=== PATIENT | female | born 1940 | race Caucasian/White ===

== ENCOUNTER 2017-10-29 08:08 | Day surgery (SDC) | payer MEDICARE ==
[2017-10-28 10:21] VITALS: BMI 30.1
[2017-10-29 09:50] VITALS: RESP 18; TEMP 97.7
[2017-10-29] MEDS ORDERED: LIDOCAINE 1% 20 ML VIAL (10MG/ML) FOR IV START INTRADERMA ONE (09:52)
[2017-10-29] MEDS: LACTATED RINGERS 1,000 ML IV SCH ×2 (09:52→10:19)
[2017-10-29 10:05] LABS: Glucose,Whole Blood 132 mg/dL (75-99)
[2017-10-29] MEDS ORDERED: PROPOFOL 10 MG/ML 20 ML VIAL IV ONE (10:21)
--- NOTE | 2017-10-29 10:48 | P.PCN ---
Date of Procedure: 10/29/17 Procedure(s) Performed: BRIEF HISTORY: Patient is a 77-year-old pleasant white female, scheduled for an elective colonoscopy as a part of evaluation of prior history of colon polyps. Last colonoscopy was 5 years ago. PROCEDURE PERFORMED: Colonoscopy with biopsy and snare polypectomy. PREOPERATIVE DIAGNOSIS: History of colon polyps. IV sedation per Anesthesia. PROCEDURE: After informed consent was obtained, the patient, was brought into the endoscopy unit. IV sedation was administered by Anesthesia under continuous monitoring. Digital rectal examination was normal. Initially the Olympus CF- 160 flexible video colonoscope was then inserted in the rectum, gradually advanced into the cecum without any difficulty. Careful examination was performed as the scope was gradually being withdrawn. Ileocecal valve and the appendiceal orifice were visualized and appeared normal. Prep was excellent. The base of the cecum there was a 3-4 mm sessile polyp removed by biopsy. In the ascending colon there was a 7 mm polyp removed by snare polypectomy. Mucosa of the cecum, ascending colon, transverse colon, descending colon, sigmoid colon, and rectum appeared normal. Retroflexion was performed in the rectum and no lesions were seen. The patient tolerated the procedure well. IMPRESSION: 3-4 mm sessile cecal polyp status post removal by biopsy 7 mm ascending colon polyp status post polypectomy RECOMMENDATIONS: Findings of this examination were discussed with the patient as well as her family. She was advised to follow with the biopsy results. If the biopsy shows a tubular adenoma, she can have a repeat colonoscopy in 5 years.
[2017-10-29 11:30] VITALS: BP 107/74; PULSE 94
== END 2017-10-29 11:41 | disposition home or self-care (01) ==
LOC: ORWHC2ENDO 08:08
PROVIDERS: ATTEND Internal Medicine Gastroenterology
DX: D12.2 Benign neoplasm of ascending colon (principal); I48.91 Unspecified atrial fibrillation; I10 Essential (primary) hypertension; J45.909 Unspecified asthma, uncomplicated; K63.5 Polyp of colon; E11.9 Type 2 diabetes mellitus without complications; Z79.899 Other long term (current) drug therapy; Z79.82 Long term (current) use of aspirin; Z79.01 Long term (current) use of anticoagulants; Z86.010 Personal history of colon polyps; Z88.5 Allergy status to narcotic agent; Z79.84 Long term (current) use of oral hypoglycemic drugs; Z88.8 Allergy status to other drugs, medicaments and biological substances
CPT/HCPCS: 88305; 45385; 45380; J2704; 36415; 71046; 80053; 82550; 82553; 83735; 83880; 84484; 85025; 85610; 85730; 94640; 96374; 99285

== ENCOUNTER 2017-10-29 16:02 | Emergency (ER) | payer MEDICARE ==
[2017-10-29] MEDS ORDERED: IPRATROPIUM-ALBUTEROL 3 ML NEB INHALATION STA (16:40)
--- NOTE | 2017-10-29 16:43 | ED ---
General Adult HPI - General Chief complaint: Chest Pain Stated complaint: Sob/heavy chest Time Seen by Provider: 10/29/17 16:30 Source: patient, RN notes reviewed, old records reviewed Mode of arrival: wheelchair Limitations: no limitations - History of Present Illness Initial comments: 77-year-old female presenting with chief complaint of dyspnea. Patient states that earlier today she had a colonoscopy, was discharged in her usual state of health, no issues, approximately one hour prior to presentation she developed exertional dyspnea. She has some central chest tightness associated with this. No radiating symptoms to her chest pain. No nausea or vomiting. Patient denies cough. Denies fever or chills. Denies lower extremity swelling or calf tenderness. Denies URI symptoms. She does have remote history of asthma but has not required treatment for her asthma in many years. No current or significant tobacco exposure. - Related Data Home Medications Medication Instructions Recorded Confirmed Aspirin EC [Ecotrin Low Dose] 81 mg PO DAILY 09/19/14 10/29/17 Rivaroxaban [Xarelto] 20 mg PO HS 09/19/14 10/29/17 Simvastatin [Zocor] 80 mg PO HS 09/19/14 10/29/17 metFORMIN HCL [Glucophage] 500 mg PO BID 09/19/14 10/29/17 Calcium Carbonate/Vitamin D3 2 tab PO BID 05/29/15 10/29/17 [Calcium 600-Vit D3 400 Tablet] Flecainide Acetate [Tambocor] 100 mg PO Q12HR 09/22/15 10/29/17 Latanoprost [Xalatan 0.005%] 1 drop RIGHT EYE HS 09/22/15 10/29/17 Levothyroxine Sodium [Levoxyl] 100 mcg PO DAILY 09/22/15 10/29/17 Venlafaxine HCl ER [Effexor Xr] 150 mg PO DAILY 09/22/15 10/29/17 Spironolactone-Hctz 25-25Mg 1 tab PO DAILY 09/24/15 10/29/17 [Aldactazide 25-25Mg] Metoprolol Tartrate [Lopressor] 12.5 mg PO BID 10/28/17 10/29/17 amLODIPine [Norvasc] 5 mg PO HS 10/28/17 10/29/17 Previous Rx's Medication Instructions Recorded Albuterol Inhaler [Ventolin Hfa 1 - 2 puff INHALATION Q4HR PRN #1 10/29/17 Inhaler] inhaler Allergies Allergy/AdvReac Type Severity Reaction Status Date / Time codeine Allergy Unknown Verified 10/29/17 16:45 Childhood NITRO PATCH AdvReac Severe Shakes/patient Uncoded 10/29/17 16:45 got very cold Review of Systems ROS Statement: Those systems with pertinent positive or pertinent negative responses have been documented in the HPI. ROS Other: All systems not noted in ROS Statement are negative. Past Medical History Past Medical History: Atrial Fibrillation, Asthma, Cancer, Diabetes Mellitus, Hyperlipidemia, Hypertension, Osteoarthritis (OA), Pneumonia, Sleep Apnea/CPAP/ BIPAP, Thyroid Disorder Additional Past Medical History / Comment(s): hx. breast cancer 6-7 yrs. ago, doesn't use CPAP, change in bowel habits recently, pneumonia >20 yrs. ago History of Any Multi-Drug Resistant Organisms: None Reported Past Surgical History: Adenoidectomy, Breast Surgery, Cholecystectomy, Hysterectomy, Tonsillectomy Additional Past Surgical History / Comment(s): sherman cataracts, loop recorder- since removed., sherman mastectomies Past Anesthesia/Blood Transfusion Reactions: No Reported Reaction Past Psychological History: No Psychological Hx Reported Smoking Status: Former smoker Past Alcohol Use History: None Reported Past Drug Use History: None Reported - Past Family History Father Family Medical History: Cancer, Thyroid Disorder Additional Family Medical History / Comment(s): spleen cancer Mother Family Medical History: Cancer Additional Family Medical History / Comment(s): breast cancer twice surviver General Exam Limitations: no limitations General appearance: alert, in no apparent distress Head exam: Present: atraumatic, normocephalic Eye exam: Present: normal appearance, PERRL ENT exam: Present: normal exam Neck exam: Present: normal inspection. Absent: tenderness, meningismus Respiratory exam: Present: wheezes, other (Good air entry, bilateral expiratory wheezing). Absent: respiratory distress Cardiovascular Exam: Present: tachycardia, irregular rhythm GI/Abdominal exam: Present: soft. Absent: distended, tenderness, guarding, rebound Extremities exam: Present: normal inspection, normal capillary refill. Absent: pedal edema, calf tenderness Back exam: Present: normal inspection, full ROM. Absent: tenderness Neurological exam: Present: alert, oriented X3, CN II-XII intact. Absent: motor sensory deficit Psychiatric exam: Present: normal affect, normal mood Skin exam: Present: warm, dry, intact. Absent: cyanosis, diaphoretic Course Vital Signs 10/29/17 10/29/17 10/29/17 16:16 17:09 17:20 Temperature 98.1 F Pulse Rate 115 H 112 H 124 H Respiratory 18 Rate Blood Pressure 107/62 O2 Sat by Pulse 97 Oximetry EKG Findings - EKG Comments: EKG Findings:: EKG atrial fibrillation with RVR, left axis deviation, T-wave abnormality in the leads V2 and V3, ventricular rate of 102, QRS duration 102, QTC 479, T-wave and ST segment abnormality is unchanged or improved from previous EKG in December 2015. Medical Decision Making - Medical Decision Making 77 yo female presenting with dyspnea. Patient is wheezing on exam, she does have history of asthma although she has not had an asthma exacerbation in many years. EKG shows atrial fibrillation with a rate of 102, there is ST segment and T-wave abnormality however this is improved from previous EKG. Patient has no central or radiating chest pain. Describes only mild chest tightness which is upper chest. Blood cell count, stable hemoglobin, troponin is negative, BNP is normal. Patient is anticoagulated for her atrial fibrillation. Chest x-ray negative for focal pneumonia. After DuoNeb treatment, patient feels 100% better , no dyspnea. Wheezing is improved. She is 97% on room air. Patient's heart rate is running right around 98-110, she will take her evening dose of metoprolol when she gets home. She will return with any worsening or changing symptoms. Patient and family are agreeable with plan. - Lab Data Result diagrams: 10/29/17 16:32 10/29/17 16:32 Lab Results 10/29/17 10/29/17 10/29/17 Range/Units 16:32 16:32 16:32 WBC 8.5 (3.8-10.6) k/uL RBC 4.82 (3.80-5.40) m/uL Hgb 13.9 (11.4-16.0) gm/dL Hct 41.2 (34.0-46.0) % MCV 85.5 (80.0-100.0) fL MCH 28.8 (25.0-35.0) pg MCHC 33.7 (31.0-37.0) g/dL RDW 14.0 (11.5-15.5) % Plt Count 351 (150-450) k/uL Neutrophils % 80 % Lymphocytes % 11 % Monocytes % 5 % Eosinophils % 2 % Basophils % 1 % Neutrophils # 6.8 (1.3-7.7) k/uL Lymphocytes # 1.0 (1.0-4.8) k/uL Monocytes # 0.5 (0-1.0) k/uL Eosinophils # 0.2 (0-0.7) k/uL Basophils # 0.1 (0-0.2) k/uL PT 10.0 (9.0-12.0) sec INR 1.0 (<1.2) APTT 21.1 L (22.0-30.0) sec Sodium 141 (137-145) mmol/L Potassium 3.4 L (3.5-5.1) mmol/L Chloride 100 (98-107) mmol/L Carbon Dioxide 25 (22-30) mmol/L Anion Gap 16 mmol/L BUN 25 H (7-17) mg/dL Creatinine 0.98 (0.52-1.04) mg/dL Est GFR (CKD-EPI)AfAm 65 (>60 ml/min/1.73 sqM) Est GFR (CKD-EPI)NonAf 56 (>60 ml/min/1.73 sqM) Glucose 195 H (74-99) mg/dL Calcium 9.8 (8.4-10.2) mg/dL Magnesium 1.8 (1.6-2.3) mg/dL Total Bilirubin 0.6 (0.2-1.3) mg/dL AST 18 (14-36) U/L ALT 20 (9-52) U/L Alkaline Phosphatase 82 (38-126) U/L Total Creatine Kinase (30-135) U/L CK-MB (CK-2) (0.0-2.4) ng/mL CK-MB (CK-2) Rel Index Troponin I (0.000-0.034) ng/mL NT-Pro-B Natriuret Pep pg/mL Total Protein 6.0 L (6.3-8.2) g/dL Albumin 3.6 (3.5-5.0) g/dL 10/29/17 10/29/17 Range/Units 16:32 16:37 WBC (3.8-10.6) k/uL RBC (3.80-5.40) m/uL Hgb (11.4-16.0) gm/dL Hct (34.0-46.0) % MCV (80.0-100.0) fL MCH (25.0-35.0) pg MCHC (31.0-37.0) g/dL RDW (11.5-15.5) % Plt Count (150-450) k/uL Neutrophils % % Lymphocytes % % Monocytes % % Eosinophils % % Basophils % % Neutrophils # (1.3-7.7) k/uL Lymphocytes # (1.0-4.8) k/uL Monocytes # (0-1.0) k/uL Eosinophils # (0-0.7) k/uL Basophils # (0-0.2) k/uL PT (9.0-12.0) sec INR (<1.2) APTT (22.0-30.0) sec Sodium (137-145) mmol/L Potassium (3.5-5.1) mmol/L Chloride (98-107) mmol/L Carbon Dioxide (22-30) mmol/L Anion Gap mmol/L BUN (7-17) mg/dL Creatinine (0.52-1.04) mg/dL Est GFR (CKD-EPI)AfAm (>60 ml/min/1.73 sqM) Est GFR (CKD-EPI)NonAf (>60 ml/min/1.73 sqM) Glucose (74-99) mg/dL Calcium (8.4-10.2) mg/dL Magnesium (1.6-2.3) mg/dL Total Bilirubin (0.2-1.3) mg/dL AST (14-36) U/L ALT (9-52) U/L Alkaline Phosphatase (38-126) U/L Total Creatine Kinase 60 (30-135) U/L CK-MB (CK-2) 0.6 (0.0-2.4) ng/mL CK-MB (CK-2) Rel Index 1.0 Troponin I <0.012 (0.000-0.034) ng/mL NT-Pro-B Natriuret Pep 731 pg/mL Total Protein (6.3-8.2) g/dL Albumin (3.5-5.0) g/dL Disposition Clinical Impression: Asthma Disposition: HOME SELF-CARE Condition: Fair Instructions: Asthma (ED) Prescriptions: Albuterol Inhaler [Ventolin Hfa Inhaler] 1 - 2 puff INHALATION Q4HR PRN #1 inhaler PRN Reason: Shortness Of Breath Referrals: Ilda Rivera DO [Primary Care Provider] - 1-2 days Time of Disposition: 17:42
[2017-10-29 16:53] LABS: Basophils # (A) 0.1 k/uL (0-0.2); Basophils % (A) 1 %; Eosinophils # (A) 0.2 k/uL (0-0.7); Eosinophils % (A) 2 %; HCT 41.2 % (34.0-46.0); HGB 13.9 gm/dL (11.4-16.0); Lymphocytes % (A) 11 %; MCH 28.8 pg (25.0-35.0); MCHC 33.7 g/dL (31.0-37.0); MCV 85.5 fL (80.0-100.0); Mean Platelet Volume 7.1; Monocytes # (A) 0.5 k/uL (0-1.0); Monocytes % (A) 5 %; Neutrophils # (A) 6.8 k/uL (1.3-7.7); Neutrophils % (A) 80 %; Platelet Count 351 k/uL (150-450); RBC 4.82 m/uL (3.80-5.40); WBC 8.5 k/uL (3.8-10.6)
[2017-10-29 17:05] LABS: Albumin 3.6 g/dL (3.5-5.0); Calcium 9.8 mg/dL (8.4-10.2); Magnesium 1.8 mg/dL (1.6-2.3); Potassium 3.4 mmol/L (3.5-5.1); Total Bilirubin 0.6 mg/dL (0.2-1.3)
[2017-10-29 17:11] LABS: Partial Thromboplastin Time 21.1 sec (22.0-30.0)
[2017-10-29 17:13] LABS: Creatine Kinase 60 U/L (30-135)
[2017-10-29 17:24] LABS: Creatine Kinase MB 0.6 ng/mL (0.0-2.4); Troponin I <0.012 ng/mL (0.000-0.034)
--- NOTE | 2017-10-29 17:32 | XR ---
EXAMINATION TYPE: XR chest 2V DATE OF EXAM: 10/29/2017 COMPARISON: 12/03/2015 HISTORY: Short of breath TECHNIQUE: Frontal and lateral views of the chest are obtained. FINDINGS: There is no heart failure nor confluent pneumonic infiltrate. Costophrenic angles are valeria r. There are chest leads. Thoracic aorta shows mild atheromatous change. IMPRESSION: No active cardiopulmonary disease. No change.
[2017-10-29] MEDS ORDERED: SODIUM CHLORIDE 0.9% 500 ML IV ONE (17:35)
[2017-10-29] MEDS ORDERED: DEXAMETHASONE SOD PHOSPHATE 10 MG/ML 1 ML VIAL IV STA (17:39)
[2017-10-29 17:42] VITALS: BP 133/89; PULSE 110; RESP 20; TEMP 97.8
== END 2017-10-29 18:04 | disposition home or self-care (01) ==
LOC: EC 16:02
DX: J45.909 Unspecified asthma, uncomplicated (principal); I48.91 Unspecified atrial fibrillation; E11.9 Type 2 diabetes mellitus without complications; E78.5 Hyperlipidemia, unspecified; I10 Essential (primary) hypertension; E07.9 Disorder of thyroid, unspecified; G47.30 Sleep apnea, unspecified; Z85.3 Personal history of malignant neoplasm of breast; Z87.891 Personal history of nicotine dependence; Z79.01 Long term (current) use of anticoagulants; Z79.82 Long term (current) use of aspirin; Z79.84 Long term (current) use of oral hypoglycemic drugs; Z79.899 Other long term (current) drug therapy; Z88.5 Allergy status to narcotic agent; Z88.8 Allergy status to other drugs, medicaments and biological substances
CPT/HCPCS: 36415; 94640; 83880; 80053; 82550; 82553; 83735; 84484; 85025; 85610; 85730; 71046; 99285; 96374; J1100

== ENCOUNTER 2017-11-14 01:06 | Emergency (ER) | payer MEDICARE ==
[2017-11-14] MEDS ORDERED: DILTIAZEM 5 MG/1 ML (25ML VIAL) IV STA (01:47)
--- NOTE | 2017-11-14 01:50 | ED ---
General Adult HPI - General Chief complaint: Shortness of Breath Stated complaint: AFIB SOB Time Seen by Provider: 11/14/17 01:26 Source: patient, family, RN notes reviewed Mode of arrival: ambulatory Limitations: no limitations - History of Present Illness Initial comments: Patient is a pleasant 77-year-old female presenting to the emergency department with concerns for atrial fibrillation. Onset of symptoms was earlier today. Patient feels her heart skipping. Patient felt short of breath. Symptoms are similar to previous atrial fibrillation. was recently in atrial fibrillation for around 10 days and got out of bed around a week ago. Patient does see Dr. Allen with cardiology. Patient has planned echo followed by ablation. Patient states dyspnea has resolved with oxygen. Patient denies ever having any chest discomfort. Patient is on Xarelto. - Related Data Home Medications Medication Instructions Recorded Confirmed Aspirin EC [Ecotrin Low Dose] 81 mg PO DAILY 09/19/14 11/14/17 Rivaroxaban [Xarelto] 20 mg PO HS 09/19/14 11/14/17 Simvastatin [Zocor] 80 mg PO HS 09/19/14 11/14/17 metFORMIN HCL [Glucophage] 500 mg PO BID 09/19/14 11/14/17 Calcium Carbonate/Vitamin D3 2 tab PO BID 05/29/15 11/14/17 [Calcium 600-Vit D3 400 Tablet] Flecainide Acetate [Tambocor] 100 mg PO Q12HR 09/22/15 11/14/17 Latanoprost [Xalatan 0.005%] 1 drop RIGHT EYE HS 09/22/15 11/14/17 Levothyroxine Sodium [Levoxyl] 100 mcg PO DAILY 09/22/15 11/14/17 Venlafaxine HCl ER [Effexor Xr] 150 mg PO DAILY 09/22/15 11/14/17 Spironolactone-Hctz 25-25Mg 1 tab PO DAILY 09/24/15 11/14/17 [Aldactazide 25-25Mg] Metoprolol Tartrate [Lopressor] 12.5 mg PO BID 10/28/17 11/14/17 amLODIPine [Norvasc] 5 mg PO HS 10/28/17 11/14/17 Previous Rx's Medication Instructions Recorded Albuterol Inhaler [Ventolin Hfa 1 - 2 puff INHALATION Q4HR PRN #1 10/29/17 Inhaler] inhaler Allergies Allergy/AdvReac Type Severity Reaction Status Date / Time codeine Allergy Unknown Verified 11/14/17 01:15 Childhood NITRO PATCH AdvReac Severe Shakes/patient Uncoded 11/14/17 01:15 got very cold Review of Systems ROS Statement: Those systems with pertinent positive or pertinent negative responses have been documented in the HPI. ROS Other: All systems not noted in ROS Statement are negative. Constitutional: Denies: fever Eyes: Denies: eye pain ENT: Denies: ear pain Respiratory: Reports: dyspnea. Denies: cough Cardiovascular: Reports: palpitations. Denies: chest pain Endocrine: Denies: fatigue Gastrointestinal: Denies: abdominal pain Genitourinary: Denies: dysuria Musculoskeletal: Denies: back pain Skin: Denies: rash Neurological: Denies: weakness Past Medical History Past Medical History: Atrial Fibrillation, Asthma, Cancer, Diabetes Mellitus, Hyperlipidemia, Hypertension, Osteoarthritis (OA), Pneumonia, Sleep Apnea/CPAP/ BIPAP, Thyroid Disorder Additional Past Medical History / Comment(s): hx. breast cancer 6-7 yrs. ago, doesn't use CPAP, change in bowel habits recently, pneumonia >20 yrs. ago History of Any Multi-Drug Resistant Organisms: None Reported Past Surgical History: Adenoidectomy, Breast Surgery, Cholecystectomy, Hysterectomy, Tonsillectomy Additional Past Surgical History / Comment(s): sherman cataracts, loop recorder- since removed., sherman mastectomies Past Anesthesia/Blood Transfusion Reactions: No Reported Reaction Past Psychological History: No Psychological Hx Reported Smoking Status: Former smoker Past Alcohol Use History: None Reported Past Drug Use History: None Reported - Past Family History Father Family Medical History: Cancer, Thyroid Disorder Additional Family Medical History / Comment(s): spleen cancer Mother Family Medical History: Cancer Additional Family Medical History / Comment(s): breast cancer twice surviver General Exam Limitations: no limitations General appearance: alert, in no apparent distress Head exam: Present: atraumatic Eye exam: Present: normal appearance, PERRL ENT exam: Present: normal oropharynx Neck exam: Present: normal inspection Respiratory exam: Present: normal lung sounds bilaterally Cardiovascular Exam: Present: irregular rhythm Expanded Peripheral pulses: 2+: Radial (R), Radial (L), Dorsalis Pedis (R), Dorsalis Pedis (L) GI/Abdominal exam: Present: soft. Absent: tenderness Extremities exam: Present: normal inspection. Absent: pedal edema, calf tenderness Neurological exam: Present: alert Psychiatric exam: Present: normal affect, normal mood Skin exam: Present: normal color Course Vital Signs 11/14/17 11/14/17 11/14/17 01:10 01:14 02:14 Temperature 97 F L Pulse Rate 100 90 99 Respiratory 20 19 16 Rate Blood Pressure 104/64 135/71 126/83 O2 Sat by Pulse 98 100 96 Oximetry 11/14/17 02:52 Temperature Pulse Rate 91 Respiratory 16 Rate Blood Pressure 98/63 O2 Sat by Pulse 93 L Oximetry EKG Findings - EKG Comments: EKG Findings:: Irregular narrow complex rhythm with a rate of 95. QRS 92. QT 370. QTc 464. Left axis. Inferior Q waves. No acute ST change. Medical Decision Making - Medical Decision Making Patient reevaluated and symptom-free. Patient requests discharge home. Patient updated on results and need for follow-up as well as need for repeat thyroid studies. - Lab Data Result diagrams: 11/14/17 01:25 11/14/17 01:25 Lab Results 11/14/17 11/14/17 11/14/17 Range/Units 01:25 01:25 01:25 WBC (3.8-10.6) k/uL RBC (3.80-5.40) m/uL Hgb (11.4-16.0) gm/dL Hct (34.0-46.0) % MCV (80.0-100.0) fL MCH (25.0-35.0) pg MCHC (31.0-37.0) g/dL RDW (11.5-15.5) % Plt Count (150-450) k/uL Neutrophils % % Lymphocytes % % Monocytes % % Eosinophils % % Basophils % % Neutrophils # (1.3-7.7) k/uL Lymphocytes # (1.0-4.8) k/uL Monocytes # (0-1.0) k/uL Eosinophils # (0-0.7) k/uL Basophils # (0-0.2) k/uL PT (9.0-12.0) sec INR (<1.2) APTT (22.0-30.0) sec Sodium 143 (137-145) mmol/L Potassium 3.7 (3.5-5.1) mmol/L Chloride 105 (98-107) mmol/L Carbon Dioxide 23 (22-30) mmol/L Anion Gap 15 mmol/L BUN 28 H (7-17) mg/dL Creatinine 0.80 (0.52-1.04) mg/dL Est GFR (CKD-EPI)AfAm 83 (>60 ml/min/1.73 sqM) Est GFR (CKD-EPI)NonAf 72 (>60 ml/min/1.73 sqM) Glucose 131 H (74-99) mg/dL Calcium 9.5 (8.4-10.2) mg/dL Magnesium 1.9 (1.6-2.3) mg/dL Total Bilirubin 0.4 (0.2-1.3) mg/dL AST 15 (14-36) U/L ALT 18 (9-52) U/L Alkaline Phosphatase 79 (38-126) U/L Total Creatine Kinase 39 (30-135) U/L CK-MB (CK-2) 0.7 (0.0-2.4) ng/mL CK-MB (CK-2) Rel Index 1.8 Troponin I <0.012 (0.000-0.034) ng/mL NT-Pro-B Natriuret Pep 2070 pg/mL Total Protein 5.7 L (6.3-8.2) g/dL Albumin 3.5 (3.5-5.0) g/dL TSH 7.120 H (0.465-4.680) mIU/L Free T3 pg/mL 2.6 L (2.8-5.3) pg/ml 11/14/17 11/14/17 Range/Units 01:25 01:25 WBC 8.5 (3.8-10.6) k/uL RBC 4.63 (3.80-5.40) m/uL Hgb 13.4 (11.4-16.0) gm/dL Hct 39.6 (34.0-46.0) % MCV 85.6 (80.0-100.0) fL MCH 29.0 (25.0-35.0) pg MCHC 33.9 (31.0-37.0) g/dL RDW 14.3 (11.5-15.5) % Plt Count 350 (150-450) k/uL Neutrophils % 76 % Lymphocytes % 14 % Monocytes % 5 % Eosinophils % 2 % Basophils % 0 % Neutrophils # 6.5 (1.3-7.7) k/uL Lymphocytes # 1.2 (1.0-4.8) k/uL Monocytes # 0.4 (0-1.0) k/uL Eosinophils # 0.2 (0-0.7) k/uL Basophils # 0.0 (0-0.2) k/uL PT 11.7 (9.0-12.0) sec INR 1.2 H (<1.2) APTT 26.7 (22.0-30.0) sec Sodium (137-145) mmol/L Potassium (3.5-5.1) mmol/L Chloride (98-107) mmol/L Carbon Dioxide (22-30) mmol/L Anion Gap mmol/L BUN (7-17) mg/dL Creatinine (0.52-1.04) mg/dL Est GFR (CKD-EPI)AfAm (>60 ml/min/1.73 sqM) Est GFR (CKD-EPI)NonAf (>60 ml/min/1.73 sqM) Glucose (74-99) mg/dL Calcium (8.4-10.2) mg/dL Magnesium (1.6-2.3) mg/dL Total Bilirubin (0.2-1.3) mg/dL AST (14-36) U/L ALT (9-52) U/L Alkaline Phosphatase (38-126) U/L Total Creatine Kinase (30-135) U/L CK-MB (CK-2) (0.0-2.4) ng/mL CK-MB (CK-2) Rel Index Troponin I (0.000-0.034) ng/mL NT-Pro-B Natriuret Pep pg/mL Total Protein (6.3-8.2) g/dL Albumin (3.5-5.0) g/dL TSH (0.465-4.680) mIU/L Free T3 pg/mL (2.8-5.3) pg/ml - Radiology Data Radiology results: image reviewed (Chest x-ray shows no acute process) Disposition Clinical Impression: Atrial fibrillation Disposition: HOME SELF-CARE Condition: Stable Instructions: A-fib (Atrial Fibrillation) (ED) Additional Instructions: Please follow-up with your primary care physician in the next day or 2 for recheck. Have primary care physician review thyroid studies. Please also follow-up with Dr. Allen in the next couple of days. Return for increased heart rate, difficult to breathing, chest pain, worsening or changing symptoms or other concerns. Referrals: Ilda Rivera DO [Primary Care Provider] - 1-2 days Time of Disposition: 03:16
[2017-11-14 01:53] LABS: Basophils % (A) 0 %; Eosinophils # (A) 0.2 k/uL (0-0.7); Eosinophils % (A) 2 %; HCT 39.6 % (34.0-46.0); HGB 13.4 gm/dL (11.4-16.0); Lymphocytes # (A) 1.2 k/uL (1.0-4.8); Lymphocytes % (A) 14 %; MCHC 33.9 g/dL (31.0-37.0); MCV 85.6 fL (80.0-100.0); Mean Platelet Volume 7.1; Monocytes # (A) 0.4 k/uL (0-1.0); Monocytes % (A) 5 %; Neutrophils # (A) 6.5 k/uL (1.3-7.7); Neutrophils % (A) 76 %; Platelet Count 350 k/uL (150-450); RBC 4.63 m/uL (3.80-5.40); RDW 14.3 % (11.5-15.5); WBC 8.5 k/uL (3.8-10.6)
[2017-11-14 02:03] LABS: INR 1.2 (<1.2); Partial Thromboplastin Time 26.7 sec (22.0-30.0); Prothrombin Time 11.7 sec (9.0-12.0)
[2017-11-14 02:08] LABS: Albumin 3.5 g/dL (3.5-5.0); Calcium 9.5 mg/dL (8.4-10.2); Magnesium 1.9 mg/dL (1.6-2.3); Potassium 3.7 mmol/L (3.5-5.1); Total Bilirubin 0.4 mg/dL (0.2-1.3); Total Protein 5.7 g/dL (6.3-8.2)
--- NOTE | 2017-11-14 02:17 | XR ---
EXAMINATION TYPE: XR chest 2V DATE OF EXAM: 11/14/2017 COMPARISON: 10/21/2017 HISTORY: Short of breath TECHNIQUE: Frontal and lateral views of the chest are obtained. FINDINGS: There is no heart failure nor confluent pneumonic infiltrate. Costophrenic angles are valeria r. Thoracic aorta is atheromatous. There are chest leads. There is mild spurring in the thoracic spin e. IMPRESSION: No active cardiopulmonary disease. No change.
[2017-11-14 02:20] LABS: Creatine Kinase 39 U/L (30-135)
[2017-11-14 02:34] LABS: Creatine Kinase MB 0.7 ng/mL (0.0-2.4); Troponin I <0.012 ng/mL (0.000-0.034)
[2017-11-14 03:29] VITALS: BP 107/64; PULSE 92; RESP 19; TEMP 97.5
== END 2017-11-14 03:29 | disposition home or self-care (01) ==
LOC: EC 01:06
DX: I48.91 Unspecified atrial fibrillation (principal); J45.909 Unspecified asthma, uncomplicated; E11.9 Type 2 diabetes mellitus without complications; E78.5 Hyperlipidemia, unspecified; I10 Essential (primary) hypertension; E07.9 Disorder of thyroid, unspecified; G47.30 Sleep apnea, unspecified; Z99.89 Dependence on other enabling machines and devices; Z85.3 Personal history of malignant neoplasm of breast; Z87.891 Personal history of nicotine dependence; Z79.82 Long term (current) use of aspirin; Z79.01 Long term (current) use of anticoagulants; Z79.84 Long term (current) use of oral hypoglycemic drugs; Z79.899 Other long term (current) drug therapy; Z88.5 Allergy status to narcotic agent; Z88.8 Allergy status to other drugs, medicaments and biological substances
CPT/HCPCS: 36415; 71046; 80053; 82550; 82553; 83735; 83880; 84439; 84443; 84481; 84484; 85025; 85610; 85730; 96374; 99285

== ENCOUNTER 2017-12-16 11:30 | Day surgery (SDC) | payer MEDICARE ==
[2017-12-11 11:56] VITALS: BMI 30.6
[~2017-12-16 11:30] MED LIST: LACTATED RINGERS 1,000 ML IV SCH; LIDOCAINE 1% 20 ML VIAL (10MG/ML) FOR IV START INTRADERMA PRN
[2017-12-16] MEDS: SODIUM CHLORIDE 0.9% 1,000 ML IV SCH (12:02)
[2017-12-16 12:10] LABS: Glucose,Whole Blood 125 mg/dL (75-99)
[2017-12-16 12:17] LABS: Basophils % (A) 1 %; Eosinophils # (A) 0.3 k/uL (0-0.7); Eosinophils % (A) 4 %; HGB 14.5 gm/dL (11.4-16.0); Lymphocytes # (A) 1.1 k/uL (1.0-4.8); Lymphocytes % (A) 15 %; MCH 28.2 pg (25.0-35.0); MCV 85.5 fL (80.0-100.0); Mean Platelet Volume 6.7; Monocytes # (A) 0.4 k/uL (0-1.0); Monocytes % (A) 5 %; Neutrophils # (A) 5.8 k/uL (1.3-7.7); Neutrophils % (A) 75 %; Platelet Count 367 k/uL (150-450); RBC 5.15 m/uL (3.80-5.40); RDW 14.6 % (11.5-15.5); WBC 7.7 k/uL (3.8-10.6)
[2017-12-16 12:23] LABS: Calcium 9.6 mg/dL (8.4-10.2); Potassium 4.3 mmol/L (3.5-5.1)
[2017-12-16] MEDS ORDERED: HEPARIN SODIUM,PORCINE 10,000 UNIT/ML 1 ML VIAL ONE (12:49)
[2017-12-16] MEDS ORDERED: PROPOFOL 10 MG/ML 20 ML VIAL IV ONE (12:49)
[2017-12-16] MEDS ORDERED: SUCCINYLCHOLINE CHLORIDE VIAL 200 MG/10 ML VIAL IV ONE (12:49)
[2017-12-16] MEDS ORDERED: HEPARIN SODIUM,PORCINE 5,000 UNIT/ML 1 ML VIAL ONE (12:49)
[2017-12-16] MEDS ORDERED: fentaNYL (PF) 50 MCG/ML 2 ML AMP ONE (12:49)
[2017-12-16] MEDS ORDERED: MIDAZOLAM 2 MG/2 ML VIAL ONE (12:49)
[2017-12-16] MEDS ORDERED: PROTAMINE SULFATE 10 MG/ML 5 ML VIAL IV ONE (12:49)
[2017-12-16] MEDS ORDERED: DEXAMETHASONE SOD PHOS (MDV) 100 MG/10 ML VIAL ONE (12:49)
[2017-12-16] MEDS ORDERED: PHENYLEPHRINE-0.9% NACL SYG 1 MG/10 ML SYRINGE ONE (12:49)
[2017-12-16] MEDS ORDERED: LIDOCAINE 2% INJ 20 MG/ML (20 ML MDV) ONE (13:03)
[2017-12-16] MEDS ORDERED: HEPARIN SODIUM 1,000 UN/ML (10ML VL) ONE (13:03)
[2017-12-16] MEDS ORDERED: HEPARIN SODIUM,PORCINE/D5W PMX 25,000 UNIT in DEXTROSE/WATER 1 500ML.BAG IV ONE (16:03)
[2017-12-16] MEDS ORDERED: LIDOCAINE 2% INJ 20 MG/ML SQ ONE (16:04)
[2017-12-16] MEDS ORDERED: LIDOCAINE 1%-EPI 1:100,000 30 ML VIAL SQ ONE (16:04)
[2017-12-16] MEDS ORDERED: SODIUM CHLORIDE 0.9% 1,000 ML IV ONE (16:06)
[2017-12-16] MEDS ORDERED: IOPAMIDOL-370 125ML BTL INJ ONE (16:09)
[2017-12-16] MEDS ORDERED: HYDROcodone/APAP 5-325MG 1 EACH TAB PO PRN (16:15)
[2017-12-16] MEDS ORDERED: ACETAMINOPHEN TAB 325 MG TAB PO PRN (16:15)
--- NOTE | 2017-12-16 16:42 | P.PCN ---
Preoperative Diagnosis: Diagnosis Persistent atrial fibrillation Symptomatic Drug refractory Procedures performed (PVI - CRYO Ablation) Invasive hemodynamic monitoring while general anesthesia, right femoral arterial line for monitoring and sampling Diagnostic EP study CS pacing and recording Catheter the mapping of the tachycardia (NOT 3D mapping) Intracardiac echocardiography Pulmonary vein isolation with transseptal and comprehensive EPS, 38770 Linear ablation of the roof in the left atrium Electrical cardioversion for slow atrial tachycardia, residual, cycle length 460 ms Procedure details Patient was brought to the EP lab in a fasting state. Written informed consent was obtained prior to the procedure. Procedure performed under general anesthesia After initial muscle relaxant use, muscle relaxants were not given thereafter in order to assess phrenic nerve during procedure Patient prepped and draped as per protocol Full cryo-set up with standard preparation of the cryoablation tools done Femoral Venous access obtained on the right and left groins Sheaths placed Diagnostic catheters for the high right atrium, phrenic nerve stimulation and pacing, His bundle, RV and coronary sinus placed Intracardiac echo catheter placed Long sheath placed in the right atrium Left and right transseptal catheterization performed under intracardiac echo guidance Intravenous heparin with aCT above 300 Later, catheter positioning and balloon positioning under intracardiac echo Baseline measurements HV 75 ms QRS 101 ms, QT 470 ms Atrial pacing performed from the high right atrium and the coronary sinus Transseptal catheterization performed RA pressure LA pressure is Transseptal catheterization performed with standard sheath. The cryoablation sheath was then placed with an over the wire exchange without any acute complications. All 4 pulmonary veins were isolated in the following sequence: Left superior followed by left inferior followed by right superior followed by right inferior The cryo-ablation balloon was placed at the os of each vein 1.5 mL of IV dye was injected to confirm an occluded vein Goal during cryoablation was to achieve -30C in the first 30 seconds. If not the balloon was repositioned to obtain this result After completion of Cryoblation with durations from 180-240 seconds, entrance block was confirmed with the Attain circular catheter in a roving fashion around the antrum of the pulmonary veins Phrenic nerve pacing was performed from the SVC, right innominate vein area and diaphragm voltage was monitored as well as manually Parameter goals for each cryo freeze -30C by 30 seconds -40C by 60 seconds Mediated between minus 40-55 Thaw time greater than 10 seconds Balloon visualized by intracardiac echo to ensure that the proximal one third was within the left atrium/antrum Left superior pulmonary vein 2 cryo lesions, 190 seconds followed by 120 seconds Time to effect was 78 seconds Complete isolation Left inferior pulmonary vein Extreme left-sided esophagus requiring deflection 3 cryo ablations The first cryoablation for 81 seconds, prematurely terminated because of low esophageal temperatures The second cryoablation 402 seconds, premature termination on account of esophageal temperatures Complete isolation of the vein at this point Additional 120 second cryoablation of the very end of the procedure Right superior pulmonary vein, during phrenic nerve pacing single cryoablation, successful isolation within 30 seconds Right inferior pulmonary vein, during phrenic nerve pacing 2 cryoablation's, 3 seconds each, complete isolation of the veins At the end of the procedure the Achieve catheter was once again used to check for entrance block Phrenic nerve stimulation was performed to confirm diaphragmatic stimulation the end of the procedure Cine fluoroscopy was performed at the very end of the procedure to confirm movement of both diaphragms with inspiration and expiration At the end of the procedure the patient was extubated Heparin was reversed Venous sheaths were removed and hemostasis assured Result Successful pulmonary vein isolation using cryo-ablation Complete entrance block in all 4 veins confirmed Linear ablation, roofline, 3 cryo lesions delivered Additional cryo ablation at the right-sided felisa anteriorly outside the pulmonary veins No evidence for phrenic nerve injury Extreme left-sided esophagus, difficult deflection but successful Residual atrial tachycardia 460 ms in cycle length, successful electrical cardioversion
[2017-12-16] MEDS ORDERED: ONDANSETRON 4 MG/2 ML VIAL IVP ONE (17:00)
[2017-12-16] MEDS ORDERED: METOCLOPRAMIDE 5 MG/ML 2 ML VIAL IVP ONE (17:10)
[2017-12-16 17:13] LABS: Glucose,Whole Blood 132 mg/dL (75-99)
[2017-12-16] MEDS ORDERED: ACETAMINOPHEN IV (For NPO) 1,000 MG in EMPTY BAG 1 BAG IVPB ONE (18:00)
[2017-12-16 20:26] LABS: Glucose,Whole Blood 147 mg/dL (75-99)
[2017-12-16] MEDS: METOPROLOL TARTRATE 12.5 MG TAB PO SCH (20:52)
[2017-12-16] MEDS: FLECAINIDE 50 MG TAB PO SCH (20:52)
[2017-12-16] MEDS ORDERED: LATANOPROST 0.005% OPHTH DROPS 2.5 ML BTL RIGHT EYE SCH (21:00)
[2017-12-16] MEDS ORDERED: RIVAROXABAN 20 MG TAB PO SCH (21:00)
[2017-12-16] MEDS ORDERED: ATORVASTATIN 40 MG TAB PO SCH (21:00)
[2017-12-17 06:07] LABS: Calcium 8.4 mg/dL (8.4-10.2); Potassium 4.4 mmol/L (3.5-5.1)
[2017-12-17] MEDS ORDERED: LEVOTHYROXINE 100 MCG TAB PO SCH (06:30)
[2017-12-17 07:03] LABS: Glucose,Whole Blood 151 mg/dL (75-99)
[2017-12-17] MEDS ORDERED: RX INFO: IV CONTRAST WAS GIVEN 1 EACH MISC MISCELLANE PRN (07:50)
--- NOTE | 2017-12-17 08:08 | P.DS ---
Providers Attending physician: Bryant Allen Primary care physician: Ilda Chilelarlo [facility] Course: Patient is lying comfortably in bed. She has no pleuritic chest discomfort but she is short of breath when she walks to the bathroom. She is limited for sore throat. Groins have healed well is no hematoma minimal tenderness. No dizziness or lightheadedness. No arrhythmias on telemetry Twelve-lead ECG was reviewed and shows sinus rhythm with a prolonged TN interval Abdomen soft Heart sounds are normal normal S1 normal S2 regular Breath sounds are clear no rhonchi no crackles No JVD Extremities warm no edema Groins have healed well Impression Successful cryoablation of the pulmonary veins with complete isolation Left atrial roof line Cryoablation outside the right anterior felisa Extreme left-sided esophagus requiring deflection Residual slow atrial tachycardia, extrapulmonary focus, cycle length 460 ms Electrical cardioversion performed Plan Lifelong anticoagulation Reduce the dose of flecainide to 50 mg twice daily Continue other medications Temporarily hold metformin and Aldactazide for 2 days. These medications can be restarted on Friday CT of the chest with contrast today to evaluate the esophagus and mediastinum were any injury. If okay then she will go home today by 6 PM In the office in about 2 weeks Patient Condition at Discharge: Stable Plan - Discharge Summary Discharge Rx Participant: No New Discharge Prescriptions: New Flecainide [Tambocor] 50 mg PO Q12HR #10 tablet Discontinued Flecainide Acetate [Tambocor] 100 mg PO TID No Action Aspirin EC [Ecotrin Low Dose] 81 mg PO DAILY Rivaroxaban [Xarelto] 20 mg PO HS metFORMIN HCL [Glucophage] 500 mg PO BID Simvastatin [Zocor] 80 mg PO HS Calcium Carbonate/Vitamin D3 [Calcium 600-Vit D3 400 Tablet] 2 tab PO BID Levothyroxine Sodium [Levoxyl] 100 mcg PO DAILY Venlafaxine HCl ER [Effexor Xr] 150 mg PO DAILY Latanoprost [Xalatan 0.005%] 1 drop RIGHT EYE HS Spironolactone-Hctz 25-25Mg [Aldactazide 25-25Mg] 1 tab PO DAILY Metoprolol Tartrate [Lopressor] 12.5 mg PO BID Discharge Medication List Aspirin EC [Ecotrin Low Dose] 81 mg PO DAILY 09/19/14 [History] Rivaroxaban [Xarelto] 20 mg PO HS 09/19/14 [History] Simvastatin [Zocor] 80 mg PO HS 09/19/14 [History] metFORMIN HCL [Glucophage] 500 mg PO BID 09/19/14 [History] Calcium Carbonate/Vitamin D3 [Calcium 600-Vit D3 400 Tablet] 2 tab PO BID [History] Latanoprost [Xalatan 0.005%] 1 drop RIGHT EYE HS 09/22/15 [History] Levothyroxine Sodium [Levoxyl] 100 mcg PO DAILY 09/22/15 [History] Venlafaxine HCl ER [Effexor Xr] 150 mg PO DAILY 09/22/15 [History] Spironolactone-Hctz 25-25Mg [Aldactazide 25-25Mg] 1 tab PO DAILY 09/24/15 [ History] Metoprolol Tartrate [Lopressor] 12.5 mg PO BID 10/28/17 [History] Flecainide [Tambocor] 50 mg PO Q12HR #10 tablet 12/17/17 [Rx] Follow up Appointment(s)/Referral(s): Bryant Allen MD [STAFF PHYSICIAN] - 2 Weeks (Follow-up with Dr. Vieira/DTpractitioner in about 2 weeks Follow-up with Dr. Vieira again in about 2 months) Activity/Diet/Wound Care/Special Instructions: Post EP study - Ablation instructions 1. Keep access sites dry for 2 days. 2. No heavy lifting or straining for 2 days. 3. Avoid bending the hips repeatedly for 2 days. 4. You may go up and down stairs slowly Call if the following is noted 1. Bleeding, increasing swelling or pain at the access sites. 2. Increasing chest discomfort, especially upon taking a deep breath. 3. Increasing shortness of breath, at rest or with exertion. 4. Undue cough / phlegm 5. Difficulty or pain while swallowing. 6. Pain or change in color in the extremities. 7. Fever, chills, rigors. 8. Increasing headache or neurologic symptoms. 9. Dizziness, fainting, palpitations Hold metformin and restart on Friday Reduce flecainide 250 mrem twice daily Continue anticoagulation lifelong Restart diuretic on Friday May go home by 6 PM if groins healing well, hemodynamic in stable and computed tomography scan does not show any evidence of air in the mediastinum Discharge Disposition: HOME SELF-CARE
[2017-12-17 08:54] VITALS: RESP 18
[2017-12-17] MEDS: METOPROLOL TARTRATE 12.5 MG TAB PO SCH (08:54)
[2017-12-17] MEDS: FLECAINIDE 50 MG TAB PO SCH (08:54)
[2017-12-17] MEDS: SODIUM CHLORIDE 0.9% 1,000 ML IV SCH (08:55)
[2017-12-17] MEDS ORDERED: VENLAFAXINE HCL ER 150 MG CAP PO SCH (09:00)
[2017-12-17] MEDS ORDERED: ASPIRIN 81 MG PO SCH (09:00)
--- NOTE | 2017-12-17 11:01 | CT ---
EXAMINATION TYPE: CT chest w con DATE OF EXAM: 12/17/2017 COMPARISON: CTA chest September 22, 2015 HISTORY: Shortness of breath. History of breast cancer per patient. Post ablation for atrial fibrilla tion rule out esophageal injury. CT DLP: 354.3 mGycm Automated exposure control for dose reduction was used. CONTRAST: CT scan of the chest is performed with IV Contrast, patient injected with 100 mL of Isovue 300. FINDINGS: LUNGS: Some dependent atelectatic changes seen in both bases. There is additional linear scarring red emonstrated in the left lung base. No suspicious focal consolidation or significant pleural effusion is seen. No pneumothorax is noted bilaterally. There is 3 mm nodule anterior right midlung axial imag e 23 redemonstrated felt stable from prior axial image 58. No new suspicious nodules or masses are id entified. There is medial left apical linear scarring or atelectasis axial image 9. There is some tara tral peribronchial consolidation and/or atelectasis bilaterally redemonstrated unchanged from prior. MEDIASTINUM: There are no greater than 1 cm hilar or mediastinal lymph nodes. No pericardial effusi on is seen. Cardiomegaly with moderate biatrial dilatation is redemonstrated. No pneumomediastinum i s seen. No suspicious focal fluid is identified. There is ectatic course to descending thoracic aorta redemonstrated. Ascending aorta measures up to 3.9 cm diameter on axial image 26 unchanged from prio r. Thyroid gland is poorly visualized likely small in size. OTHER: There is stable low dense nodularity to both adrenal glands, left larger than right. Favor raj ign hyperplasia. Cholecystectomy clips are redemonstrated. Moderate multilevel spurring in thoracic s pine is redemonstrated. IMPRESSION: 1. No CT evidence for complication related to ablation for atrial fibrillation. In particular no new pneumomediastinum is identified.
[2017-12-17 12:29] LABS: Glucose,Whole Blood 139 mg/dL (75-99)
[2017-12-17 15:47] VITALS: BP 105/62; PULSE 68; TEMP 98
[2017-12-17] MEDS ORDERED: RIVAROXABAN 15 MG TAB PO SCH (21:00)
== END 2017-12-17 17:48 | disposition home or self-care (01) ==
LOC: CATHEP 11:30 → 3OBS 17:31 → CATHEP 12-17 17:25
PROVIDERS: ATTEND Internal Medicine Clinical Cardiac Electrophysiology
DX: I48.1 Persistent atrial fibrillation (principal); I47.1 Supraventricular tachycardia; I44.0 Atrioventricular block, first degree; I11.0 Hypertensive heart disease with heart failure; I50.9 Heart failure, unspecified; E78.5 Hyperlipidemia, unspecified; E11.9 Type 2 diabetes mellitus without complications; E03.9 Hypothyroidism, unspecified; F32.9 Major depressive disorder, single episode, unspecified; E66.9 Obesity, unspecified; Z68.32 Body mass index [BMI] 32.0-32.9, adult; Z86.73 Personal history of transient ischemic attack (TIA), and cerebral infarction without residual deficits; Z85.3 Personal history of malignant neoplasm of breast; Z90.13 Acquired absence of bilateral breasts and nipples; Z79.01 Long term (current) use of anticoagulants; Z79.84 Long term (current) use of oral hypoglycemic drugs; Z79.82 Long term (current) use of aspirin; Z79.899 Other long term (current) drug therapy; Z88.5 Allergy status to narcotic agent; Z88.8 Allergy status to other drugs, medicaments and biological substances
CPT/HCPCS: 93662; 93654; 80048 ×2; 80061; 85025; 71260; C1769 ×5; C1894 ×3; C1730 ×2; C1759; C1893; C1733; C1766; J2001; J2250; J0330; J2720; J1644 ×3; J2765; J2405; J3010; J1100; J2370; J2704; Q9967 ×2; 93609

== ENCOUNTER 2018-01-02 10:24 | Observation (INO) | payer MEDICARE ==
[2018-01-02] MEDS ORDERED: SODIUM CHLORIDE 0.9% 1,000 ML IV STA (10:40)
--- NOTE | 2018-01-02 10:44 | ED ---
General Adult HPI - General Chief complaint: Weakness Stated complaint: Sob/weakness Time Seen by Provider: 01/02/18 10:29 Source: patient, family, EMS, RN notes reviewed Mode of arrival: EMS Limitations: no limitations - History of Present Illness Initial comments: Patient is a pleasant 77-year-old female presenting to the emergency department with fatigue and weakness. Patient did have ablation done 2 weeks ago. Patient states symptoms have worsened since that time, especially the past couple of days. Patient has difficulty with exertion including fatigue and feeling lightheaded and dyspnea. Symptoms are mild her when lying down. Patient has had some episodes of chest discomfort, last was yesterday. Patient denies any palpitations. Patient is on anticoagulation for atrial fibrillation. does question if patient has had some mild confusion recently and questions if this could be age-related. - Related Data Home Medications Medication Instructions Recorded Confirmed Aspirin EC [Ecotrin Low Dose] 81 mg PO DAILY 09/19/14 01/02/18 Rivaroxaban [Xarelto] 20 mg PO DAILY@1700 09/19/14 01/02/18 Simvastatin [Zocor] 80 mg PO HS 09/19/14 01/02/18 metFORMIN HCL [Glucophage] 500 mg PO BID 09/19/14 01/02/18 Latanoprost [Xalatan 0.005%] 1 drop RIGHT EYE HS 09/22/15 01/02/18 Venlafaxine HCl ER [Effexor Xr] 150 mg PO DAILY 09/22/15 01/02/18 Spironolactone-Hctz 25-25Mg 1 tab PO DAILY 09/24/15 01/02/18 [Aldactazide 25-25Mg] Metoprolol Tartrate [Lopressor] 25 mg PO BID@0900,1700 10/28/17 01/02/18 Levothyroxine Sodium 100 mcg PO DAILY 01/02/18 01/02/18 Previous Rx's Medication Instructions Recorded Flecainide [Tambocor] 50 mg PO Q12HR #10 tablet 12/17/17 Allergies Allergy/AdvReac Type Severity Reaction Status Date / Time codeine Allergy Unknown Verified 01/02/18 10:45 Childhood NITRO PATCH AdvReac Severe Shakes/patient Uncoded 01/02/18 10:28 got very cold Review of Systems ROS Statement: Those systems with pertinent positive or pertinent negative responses have been documented in the HPI. ROS Other: All systems not noted in ROS Statement are negative. Constitutional: Denies: fever Eyes: Denies: eye pain ENT: Denies: ear pain Respiratory: Denies: cough Cardiovascular: Reports: chest pain. Denies: palpitations Endocrine: Reports: fatigue Gastrointestinal: Denies: abdominal pain Genitourinary: Denies: dysuria Musculoskeletal: Denies: back pain Skin: Denies: rash Neurological: Denies: headache Past Medical History Past Medical History: Atrial Fibrillation, Asthma, Cancer, Diabetes Mellitus, Hyperlipidemia, Hypertension, Osteoarthritis (OA), Pneumonia, Sleep Apnea/CPAP/ BIPAP, Thyroid Disorder Additional Past Medical History / Comment(s): hx. breast cancer 6-7 yrs. ago, doesn't use CPAP, change in bowel habits recently, pneumonia >20 yrs. ago History of Any Multi-Drug Resistant Organisms: None Reported Past Surgical History: Adenoidectomy, Breast Surgery, Cholecystectomy, Hysterectomy, Tonsillectomy Additional Past Surgical History / Comment(s): sherman cataracts, loop recorder- since removed., sherman mastectomies, cardiac ablation for afib Past Anesthesia/Blood Transfusion Reactions: No Reported Reaction Past Psychological History: No Psychological Hx Reported Smoking Status: Former smoker Past Alcohol Use History: None Reported Past Drug Use History: None Reported - Past Family History Father Family Medical History: Cancer, Thyroid Disorder Additional Family Medical History / Comment(s): spleen cancer Mother Family Medical History: Cancer Additional Family Medical History / Comment(s): breast cancer twice surviver General Exam Limitations: no limitations General appearance: alert, in no apparent distress Head exam: Present: atraumatic Eye exam: Present: normal appearance, PERRL ENT exam: Present: normal oropharynx Neck exam: Present: normal inspection Respiratory exam: Present: normal lung sounds bilaterally Cardiovascular Exam: Present: tachycardia, irregular rhythm GI/Abdominal exam: Present: soft. Absent: tenderness Extremities exam: Present: normal inspection. Absent: pedal edema, calf tenderness Back exam: Present: normal inspection Neurological exam: Present: alert, CN II-XII intact. Absent: motor sensory deficit Expanded Neurological exam: Present: protecting the airway Speech: Present: fluid speech Motor strength exam: RUE: 5, LUE: 5, RLE: 5, LLE: 5 Psychiatric exam: Present: normal affect, normal mood Skin exam: Present: normal color Course Vital Signs 01/02/18 01/02/18 10:26 12:36 Temperature 97.1 F L Pulse Rate 123 H 105 H Respiratory 20 19 Rate Blood Pressure 139/68 107/69 O2 Sat by Pulse 96 97 Oximetry EKG Findings - EKG Comments: EKG Findings:: A. fib with a rate of 116. QRS 80. QT 356. QTc 494. Left axis. Inferior Q waves. Nonspecific ST-T. Medical Decision Making - Medical Decision Making Patient reevaluated and resting comfortably in bed. Patient and family updated on results and plan. Case was discussed in detail with Dr. Thomas, who will admit for Dr. Thomason. Cardiology will be placed on consult. - Lab Data Result diagrams: 01/02/18 10:40 01/02/18 10:40 Lab Results 01/02/18 01/02/18 01/02/18 Range/Units 10:40 10:40 10:40 WBC 8.9 (3.8-10.6) k/uL RBC 4.57 (3.80-5.40) m/uL Hgb 13.3 (11.4-16.0) gm/dL Hct 39.0 (34.0-46.0) % MCV 85.5 (80.0-100.0) fL MCH 29.2 (25.0-35.0) pg MCHC 34.1 (31.0-37.0) g/dL RDW 15.7 H (11.5-15.5) % Plt Count 290 (150-450) k/uL Neutrophils % 78 % Lymphocytes % 12 % Monocytes % 5 % Eosinophils % 2 % Basophils % 0 % Neutrophils # 7.0 (1.3-7.7) k/uL Lymphocytes # 1.1 (1.0-4.8) k/uL Monocytes # 0.5 (0-1.0) k/uL Eosinophils # 0.2 (0-0.7) k/uL Basophils # 0.0 (0-0.2) k/uL PT (9.0-12.0) sec INR (<1.2) APTT (22.0-30.0) sec Sodium 140 (137-145) mmol/L Potassium 3.6 (3.5-5.1) mmol/L Chloride 102 (98-107) mmol/L Carbon Dioxide 21 L (22-30) mmol/L Anion Gap 17 mmol/L BUN 31 H (7-17) mg/dL Creatinine 0.74 (0.52-1.04) mg/dL Est GFR (CKD-EPI)AfAm >90 (>60 ml/min/1.73 sqM) Est GFR (CKD-EPI)NonAf 80 (>60 ml/min/1.73 sqM) Glucose 129 H (74-99) mg/dL Calcium 9.1 (8.4-10.2) mg/dL Phosphorus 3.0 (2.5-4.5) mg/dL Magnesium 1.8 (1.6-2.3) mg/dL Total Bilirubin 0.8 (0.2-1.3) mg/dL AST 33 (14-36) U/L ALT 16 (9-52) U/L Alkaline Phosphatase 67 (38-126) U/L Total Creatine Kinase 47 (30-135) U/L CK-MB (CK-2) 0.7 (0.0-2.4) ng/mL CK-MB (CK-2) Rel Index 1.5 Troponin I <0.012 (0.000-0.034) ng/mL Total Protein 6.2 L (6.3-8.2) g/dL Albumin 4.0 (3.5-5.0) g/dL TSH 9.090 H (0.465-4.680) mIU/L Free T4 1.27 (0.78-2.19) ng/dL Free T3 pg/mL 2.4 L (2.8-5.3) pg/ml Urine Color Urine Appearance (Clear) Urine pH (5.0-8.0) Ur Specific [place] (1.001-1.035) Urine Protein (Negative) Urine Glucose (UA) (Negative) Urine Ketones (Negative) Urine Blood (Negative) Urine Nitrite (Negative) Urine Bilirubin (Negative) Urine Urobilinogen (<2.0) mg/dL Ur Leukocyte Esterase (Negative) Urine RBC (0-5) /hpf Urine WBC (0-5) /hpf Ur Squamous Epith Cells (0-4) /hpf Urine Bacteria (None) /hpf Hyaline Casts (0-2) /lpf Urine Mucus (None) /hpf 01/02/18 01/02/18 Range/Units 10:40 11:52 WBC (3.8-10.6) k/uL RBC (3.80-5.40) m/uL Hgb (11.4-16.0) gm/dL Hct (34.0-46.0) % MCV (80.0-100.0) fL MCH (25.0-35.0) pg MCHC (31.0-37.0) g/dL RDW (11.5-15.5) % Plt Count (150-450) k/uL Neutrophils % % Lymphocytes % % Monocytes % % Eosinophils % % Basophils % % Neutrophils # (1.3-7.7) k/uL Lymphocytes # (1.0-4.8) k/uL Monocytes # (0-1.0) k/uL Eosinophils # (0-0.7) k/uL Basophils # (0-0.2) k/uL PT 11.3 (9.0-12.0) sec INR 1.2 H (<1.2) APTT 24.6 (22.0-30.0) sec Sodium (137-145) mmol/L Potassium (3.5-5.1) mmol/L Chloride (98-107) mmol/L Carbon Dioxide (22-30) mmol/L Anion Gap mmol/L BUN (7-17) mg/dL Creatinine (0.52-1.04) mg/dL Est GFR (CKD-EPI)AfAm (>60 ml/min/1.73 sqM) Est GFR (CKD-EPI)NonAf (>60 ml/min/1.73 sqM) Glucose (74-99) mg/dL Calcium (8.4-10.2) mg/dL Phosphorus (2.5-4.5) mg/dL Magnesium (1.6-2.3) mg/dL Total Bilirubin (0.2-1.3) mg/dL AST (14-36) U/L ALT (9-52) U/L Alkaline Phosphatase (38-126) U/L Total Creatine Kinase (30-135) U/L CK-MB (CK-2) (0.0-2.4) ng/mL CK-MB (CK-2) Rel Index Troponin I (0.000-0.034) ng/mL Total Protein (6.3-8.2) g/dL Albumin (3.5-5.0) g/dL TSH (0.465-4.680) mIU/L Free T4 (0.78-2.19) ng/dL Free T3 pg/mL (2.8-5.3) pg/ml Urine Color Yellow Urine Appearance Clear (Clear) Urine pH 5.5 (5.0-8.0) Ur Specific [place] 1.028 (1.001-1.035) Urine Protein Trace H (Negative) Urine Glucose (UA) Negative (Negative) Urine Ketones Negative (Negative) Urine Blood Negative (Negative) Urine Nitrite Negative (Negative) Urine Bilirubin Negative (Negative) Urine Urobilinogen 2.0 (<2.0) mg/dL Ur Leukocyte Esterase Small H (Negative) Urine RBC 1 (0-5) /hpf Urine WBC 4 (0-5) /hpf Ur Squamous Epith Cells 2 (0-4) /hpf Urine Bacteria Rare H (None) /hpf Hyaline Casts 3 H (0-2) /lpf Urine Mucus Rare H (None) /hpf - Radiology Data Radiology results: report reviewed (Computed tomography scan of the brain shows no acute hemorrhage or shift.), image reviewed (Chest x-ray shows no acute process.) Disposition Clinical Impression: Atrial fibrillation with RVR Disposition: ADMITTED IP TO THIS HOSP Referrals: Ilda Thomason DO [Primary Care Provider] - 1-2 days Decision Time: 12:45
[2018-01-02 10:58] LABS: Basophils % (A) 0 %; Eosinophils # (A) 0.2 k/uL (0-0.7); Eosinophils % (A) 2 %; HGB 13.3 gm/dL (11.4-16.0); Lymphocytes # (A) 1.1 k/uL (1.0-4.8); Lymphocytes % (A) 12 %; MCH 29.2 pg (25.0-35.0); MCHC 34.1 g/dL (31.0-37.0); MCV 85.5 fL (80.0-100.0); Mean Platelet Volume 7.9; Monocytes # (A) 0.5 k/uL (0-1.0); Monocytes % (A) 5 %; Neutrophils % (A) 78 %; Platelet Count 290 k/uL (150-450); RBC 4.57 m/uL (3.80-5.40); RDW 15.7 % (11.5-15.5); WBC 8.9 k/uL (3.8-10.6)
[2018-01-02 11:07] LABS: INR 1.2 (<1.2); Partial Thromboplastin Time 24.6 sec (22.0-30.0); Prothrombin Time 11.3 sec (9.0-12.0)
--- NOTE | 2018-01-02 11:10 | XR ---
EXAMINATION TYPE: XR chest 2V DATE OF EXAM: 01/02/2018 COMPARISON: Chest x-ray November 14, 2017. CT chest December 17, 2017. HISTORY: Shortness of breath and weakness. TECHNIQUE: Frontal and lateral views of the chest are obtained. FINDINGS: There is chronic parenchymal change without suspicious focal air space opacity, pleural ef fusion, or pneumothorax seen. The cardiac silhouette size is mildly enlarged with atherosclerotic an d ectatic aorta. The osseous structures are demineralized. Numerous clips in the upper abdomen from cholecystectomy are seen on lateral view. IMPRESSION: Chronic changes and cardiomegaly without acute pulmonary process.
--- NOTE | 2018-01-02 11:13 | CT ---
EXAMINATION TYPE: CT brain wo con DATE OF EXAM: 01/02/2018 HISTORY: SOB/Weakness CT DLP: 1590 mGycm. Automated Exposure Control for Dose Reduction was Utilized. TECHNIQUE: CT scan of the head is performed without contrast. COMPARISON: CT brain September 30, 2013. FINDINGS: There is no acute intracranial hemorrhage or midline shift identified. There is diffuse v entricular and sulcal prominence consistent with diffuse age-related cerebral atrophy. Hyperostosis f rontalis is present. The globes are intact and the visualized sinuses are clear. IMPRESSION: No acute intracranial hemorrhage or midline shift. There is mild to moderate diffuse ag e-related cerebral atrophy most prominent over bilateral frontal lobes. There is no significant medel e from prior CT.
[2018-01-02 11:24] LABS: Creatine Kinase 47 U/L (30-135)
[2018-01-02 11:26] LABS: ALT 16 U/L (9-52); AST 33 U/L (14-36); Alkaline Phosphatase 67 U/L (38-126); Anion Gap 17 mmol/L; Blood Urea Nitrogen 31 mg/dL (7-17); Calcium 9.1 mg/dL (8.4-10.2); Carbon Dioxide 21 mmol/L (22-30); Chloride 102 mmol/L (98-107); Glucose 129 mg/dL (74-99); Magnesium 1.8 mg/dL (1.6-2.3); Sodium 140 mmol/L (137-145); Total Bilirubin 0.8 mg/dL (0.2-1.3); Total Protein 6.2 g/dL (6.3-8.2)
[2018-01-02 11:28] LABS: Potassium 3.6 mmol/L (3.5-5.1)
[2018-01-02 11:36] LABS: Creatine Kinase MB 0.7 ng/mL (0.0-2.4); Troponin I <0.012 ng/mL (0.000-0.034)
[2018-01-02 12:08] LABS: T4, Free (Free Thyroxine) 1.27 ng/dL (0.78-2.19)
[2018-01-02 12:13] LABS: Appearance,Urine Clear (Clear); Bacteria,Urine Rare /hpf; Bilirubin,Urine Negative (Negative); Blood,Urine Negative (Negative); Color,Urine Yellow; Glucose,Urine (UA) Negative (Negative); Hyaline Casts,Urine 3 /lpf (0-2); Ketones,Urine Negative (Negative); Leukocyte Esterase,Urine Small (Negative); Mucus,Urine Rare /hpf; Nitrite,Urine Negative (Negative); PH, Urine 5.5 (5.0-8.0); Protein,Urine Trace (Negative); RBC,Urine 1 /hpf (0-5); Specific Gravity,Urine 1.028 (1.001-1.035); Squamous Epithelial Cell,Urine 2 /hpf (0-4); WBC,Urine 4 /hpf (0-5)
[2018-01-02] MEDS ORDERED: NALOXONE 0.4 MG/ML 1 ML VIAL IV PRN (12:45)
[2018-01-02 14:28] VITALS: BMI 31.8
[2018-01-02 14:41] VITALS: RESP 18
--- NOTE | 2018-01-02 15:41 | P.HPIM ---
History of Present Illness Pleasant 77-year-old female came in with complaints of Flagyl is fatigued weakness and palpitations. Patient underwent the cardiac ablation procedure 2 weeks ago she did okay for 5 days after which she started having symptoms of palpitations and patient went into A. fib as per the patient. Patient is on anticoagulation with is Xarelto Sade as well as aspirin as recommended by Dr. Vieira. And is on metoprolol and flecainide. Patient to TSH is elevated but T4 is essentially within normal limits. Patient denied any fever chills patient and dysuria nausea vomiting although patient is severely fatigued. No other significant lab abnormality was appreciated. Patient is resumed on anticoagulation and patient metoprolol dose will be increased cardiology was consulted. Patient was comparing of exertional shortness of breath chest x-ray is essentially within normal limits. Patient had normal echocardiogram with ejection fraction of 55-60% in the past Review of Systems REVIEW OF SYSTEMS: HEENT: No recent visual problems or hearing problems. Denied any sore throat. CARDIOVASCULAR: No chest pain, orthopnea, PND, no palpitations, no syncope. PULMONARY: no cough, no hemoptysis. GASTROINTESTINAL: No diarrhea, no nausea, no vomiting, no abdominal pain. Normoactive bowel sounds. NEUROLOGICAL: No headaches, no weakness, no numbness. HEMATOLOGICAL: Denies any bleeding or petechiae. GENITOURINARY: Denies any burning micturition, frequency, or urgency. MUSCULOSKELETAL/RHEUMATOLOGICAL: Denies any joint pain, swelling, or any muscle pain. ENDOCRINE: Denies any polyuria or polydipsia. The rest of the 14-point review of systems is negative. Past Medical History Past Medical History: Atrial Fibrillation, Asthma, Cancer, Diabetes Mellitus, Hyperlipidemia, Hypertension, Osteoarthritis (OA), Pneumonia, Sleep Apnea/CPAP/ BIPAP, Syncope, Thyroid Disorder Additional Past Medical History / Comment(s): Pt recently admitted 12/16/17 with cardiac ablation for Afib. Other hx: AFib/RVR, bronchial asthma, pneumonia 20 yrs ago, EDGAR without device, sinus problems at times, NIDDM type II, L breast cancer with surgery, R eye glaucoma, varicose veins L leg, recent bowel habit changes-had colonoscopy which was normal. History of Any Multi-Drug Resistant Organisms: None Reported Past Surgical History: Adenoidectomy, Breast Surgery, Cardiac Ablation, Cholecystectomy, Hysterectomy, Tonsillectomy Additional Past Surgical History / Comment(s): 12/16/17 Cardiac ablation for Afib , TTT, 2008 cardiac cath-normal, 2010 L breast mastectomy d/t cancer and then 4 months later had R mastectomy for prophyllactically, bilateral cataract removals Past Anesthesia/Blood Transfusion Reactions: No Reported Reaction Smoking Status: Former smoker - Past Family History Father Family Medical History: Cancer, Thyroid Disorder Additional Family Medical History / Comment(s): spleen cancer Mother Family Medical History: Cancer Additional Family Medical History / Comment(s): breast cancer twice surviver Medications and Allergies Home Medications Medication Instructions Recorded Confirmed Type Aspirin EC [Ecotrin Low Dose] 81 mg PO DAILY 09/19/14 01/02/18 History Rivaroxaban [Xarelto] 20 mg PO DAILY@1700 09/19/14 01/02/18 History Simvastatin [Zocor] 80 mg PO HS 09/19/14 01/02/18 History metFORMIN HCL [Glucophage] 500 mg PO BID 09/19/14 01/02/18 History Latanoprost [Xalatan 0.005%] 1 drop RIGHT EYE HS 09/22/15 01/02/18 History Venlafaxine HCl ER [Effexor Xr] 150 mg PO DAILY 09/22/15 01/02/18 History Spironolactone-Hctz 25-25Mg 1 tab PO DAILY 09/24/15 01/02/18 History [Aldactazide 25-25Mg] Metoprolol Tartrate [Lopressor] 25 mg PO BID@0900,1700 10/28/17 01/02/18 History Flecainide [Tambocor] 50 mg PO Q12HR #10 tablet 12/17/17 01/02/18 Rx Levothyroxine Sodium 100 mcg PO DAILY 01/02/18 01/02/18 History Allergies Allergy/AdvReac Type Severity Reaction Status Date / Time codeine Allergy Unknown Verified 01/02/18 10:45 Childhood NITRO PATCH AdvReac Severe Shakes/patient Uncoded 01/02/18 10:28 got very cold Physical Exam Vitals: Vital Signs Temp Pulse Pulse Resp BP BP Pulse Ox 01/02/18 13:30 97.0 F L 106 H 18 125/77 95 01/02/18 13:03 97.7 F 110 H 19 111/61 97 01/02/18 12:36 105 H 19 107/69 97 01/02/18 10:26 97.1 F L 123 H 20 139/68 96 Intake and Output 01/02/18 01/02/18 01/02/18 06:59 14:59 22:59 Other: Weight 79 kg PHYSICAL EXAMINATION: GENERAL: The patient is alert and oriented x3, not in any acute distress. Well developed, well nourished. Patient appears to be severely fatigued HEENT: Pupils are round and equally reacting to light. EOMI. No scleral icterus. No conjunctival pallor. Normocephalic, atraumatic. No pharyngeal erythema. No thyromegaly. CARDIOVASCULAR: S1 and S2 present. No murmurs, rubs, or gallops. Irregularly irregular rhythm tachycardic. PULMONARY: Chest is clear to auscultation, no wheezing or crackles. ABDOMEN: Soft, nontender, nondistended, normoactive bowel sounds. No palpable organomegaly. MUSCULOSKELETAL: No joint swelling or deformity. EXTREMITIES: No cyanosis, clubbing, or pedal edema. NEUROLOGICAL: Gross neurological examination did not reveal any focal deficits. SKIN: No rashes. Results CBC & Chem 7: 01/02/18 10:40 01/02/18 10:40 Labs: Abnormal Lab Results - Last 24 Hours (Table) 01/02/18 01/02/18 01/02/18 Range/Units 10:40 10:40 10:40 RDW 15.7 H (11.5-15.5) % INR 1.2 H (<1.2) Carbon Dioxide 21 L (22-30) mmol/L BUN 31 H (7-17) mg/dL Glucose 129 H (74-99) mg/dL Total Protein 6.2 L (6.3-8.2) g/dL TSH 9.090 H (0.465-4.680) mIU/L Free T3 pg/mL 2.4 L (2.8-5.3) pg/ml Urine Protein (Negative) Ur Leukocyte Esterase (Negative) Urine Bacteria (None) /hpf Hyaline Casts (0-2) /lpf Urine Mucus (None) /hpf 01/02/18 Range/Units 11:52 RDW (11.5-15.5) % INR (<1.2) Carbon Dioxide (22-30) mmol/L BUN (7-17) mg/dL Glucose (74-99) mg/dL Total Protein (6.3-8.2) g/dL TSH (0.465-4.680) mIU/L Free T3 pg/mL (2.8-5.3) pg/ml Urine Protein Trace H (Negative) Ur Leukocyte Esterase Small H (Negative) Urine Bacteria Rare H (None) /hpf Hyaline Casts 3 H (0-2) /lpf Urine Mucus Rare H (None) /hpf Thrombosis Risk Factor Assmnt - Choose All That Apply Any of the Below Risk Factors Present?: Yes Each Factor Represents 1 point: Obesity (BMI >25) Other Risk Factors: Yes Each Risk Factor Represents 2 Points: Malignancy Each Risk Factor Represents 3 Points: Age 75 years or older Other congenital or acquired thrombophilia - If yes, enter type in comment: No Thrombosis Risk Factor Assessment Total Risk Factor Score: 6 Thrombosis Risk Factor Assessment Level: High Risk Assessment and Plan Plan: -Generalized fatigue, palpitations: A. fib with rapid and regular rate: Patient will be continued on anticoagulations beta felipe dose will be increased. Cardiology was consulted. -Asthma without any acute acceleration exam-type 2 diabetes mellitus metformin will be resumed and continued -Hypertension as I'm increasing beta felipe I am holding off on diuretic therapy for hypertension. -Sleep apnea uses CPAP machine which will be continued -Hypothyroidism with elevated TSH probably sick euthyroid syndrome continue the same dose of levothyroxine without any changes for now and repeat TSH as an outpatient. -History of breast cancer status post bilateral mastectomy and cancer is in remission.
[2018-01-02] MEDS: SODIUM CHLORIDE 0.9% 1,000 ML IV SCH (15:56)
[2018-01-02] MEDS: RIVAROXABAN 20 MG TAB PO SCH (15:57)
[2018-01-02] MEDS: METOPROLOL TARTRATE 50 MG TAB PO SCH (15:57)
[2018-01-02 16:44] LABS: Glucose,Whole Blood 162 mg/dL (75-99)
[2018-01-02] MEDS: metFORMIN 500 MG TAB PO SCH (17:12)
[2018-01-02 17:21] LABS: Creatine Kinase 38 U/L (30-135)
[2018-01-02 17:33] LABS: Creatine Kinase MB 0.6 ng/mL (0.0-2.4); Troponin I <0.012 ng/mL (0.000-0.034)
[2018-01-02] MEDS: FLECAINIDE 50 MG TAB PO SCH (19:50)
[2018-01-02] MEDS: ATORVASTATIN 40 MG TAB PO SCH (19:50)
[2018-01-02] MEDS: LATANOPROST 0.005% OPHTH DROPS 2.5 ML BTL RIGHT EYE SCH (20:37)
[2018-01-02] MEDS: ALPRAZolam 0.25 MG TAB PO SCH (20:38)
[2018-01-02 21:00] LABS: Glucose,Whole Blood 125 mg/dL (75-99)
[2018-01-02 22:51] LABS: Creatine Kinase 41 U/L (30-135)
[2018-01-02 23:02] LABS: Creatine Kinase MB 0.6 ng/mL (0.0-2.4); Troponin I <0.012 ng/mL (0.000-0.034)
[2018-01-03 06:16] LABS: Glucose,Whole Blood 124 mg/dL (75-99)
[2018-01-03] MEDS: LEVOTHYROXINE 100 MCG TAB PO SCH (06:20)
[2018-01-03] MEDS: metFORMIN 500 MG TAB PO SCH ×2 (06:20→17:31)
[2018-01-03] MEDS: ASPIRIN 81 MG PO SCH (09:28)
[2018-01-03] MEDS: VENLAFAXINE HCL ER 150 MG CAP PO SCH (09:28)
[2018-01-03] MEDS: FLECAINIDE 50 MG TAB PO SCH ×2 (09:28→20:15)
[2018-01-03] MEDS: METOPROLOL TARTRATE 50 MG TAB PO SCH ×2 (09:28→15:28)
[2018-01-03] MEDS: SODIUM CHLORIDE 0.9% 1,000 ML IV SCH (11:21)
[2018-01-03 12:12] LABS: Glucose,Whole Blood 111 mg/dL (75-99)
--- NOTE | 2018-01-03 14:19 | P.DS ---
Providers Date of admission: 01/02/18 12:57 Attending physician: Jerson Thomas Consults: 01/02/18 12:46 Consult Physician Urgent Consulting Provider: Johanne Felix Consult Reason/Comments: a fib Do you want consulting provider notified?: Yes Primary care physician: Ilda Rivera [facility] Course: Patient was admitted for severe asymptomatic atrial fibrillation. Patient heart rate is fairly controlled now is in low 100s upon ambulation. Patient fatigue significantly improved after heart rate controlled. Patient will be a evaluated by cardiology and the cleared for discharge patient will be discharged today to follow with Dr. Vieira as an outpatient. No significant overnight events. Patient shortness of breath improved as well. Patient is on diuretic therapy because of hypotension this diuretic therapy is being held diuretic therapy is for hypertension I believe. PHYSICAL EXAMINATION: GENERAL: The patient is alert and oriented x3, not in any acute distress. Well developed, well nourished. Patient appears to be severely fatigued HEENT: Pupils are round and equally reacting to light. EOMI. No scleral icterus. No conjunctival pallor. Normocephalic, atraumatic. No pharyngeal erythema. No thyromegaly. CARDIOVASCULAR: S1 and S2 present. No murmurs, rubs, or gallops. Irregularly irregular rhythm tachycardic. PULMONARY: Chest is clear to auscultation, no wheezing or crackles. ABDOMEN: Soft, nontender, nondistended, normoactive bowel sounds. No palpable organomegaly. MUSCULOSKELETAL: No joint swelling or deformity. EXTREMITIES: No cyanosis, clubbing, or pedal edema. NEUROLOGICAL: Gross neurological examination did not reveal any focal deficits. SKIN: No rashes. Assessment and Plan Plan: -Generalized fatigue, palpitations: A. fib with rapid and regular rate: Patient will be continued on anticoagulations beta felipe dose will be increased. C -Asthma without any acute exacerbation 2 diabetes mellitus -Hypertension -Sleep apnea uses CPAP machine which will be continued -Hypothyroidism with elevated TSH probably sick euthyroid syndrome continue the same dose of levothyroxine without any changes for now and repeat TSH as an outpatient in about a month. -History of breast cancer status post bilateral mastectomy and cancer is in remission. Plan - Discharge Summary Discharge Rx Participant: No New Discharge Prescriptions: New Metoprolol Tartrate [Lopressor] 50 mg PO BID@0900,1700 #60 tab Continue Aspirin EC [Ecotrin Low Dose] 81 mg PO DAILY Rivaroxaban [Xarelto] 20 mg PO DAILY@1700 metFORMIN HCL [Glucophage] 500 mg PO BID Simvastatin [Zocor] 80 mg PO HS Venlafaxine HCl ER [Effexor XR] 150 mg PO DAILY Latanoprost [Xalatan 0.005%] 1 drop RIGHT EYE HS Flecainide [Tambocor] 50 mg PO Q12HR #10 tablet Levothyroxine Sodium 100 mcg PO DAILY Discontinued Spironolactone-Hctz 25-25Mg [Aldactazide 25-25 MG] 1 tab PO DAILY Metoprolol Tartrate [Lopressor] 25 mg PO BID@0900,1700 Discharge Medication List Aspirin EC [Ecotrin Low Dose] 81 mg PO DAILY 09/19/14 [History] Rivaroxaban [Xarelto] 20 mg PO DAILY@1700 09/19/14 [History] Simvastatin [Zocor] 80 mg PO HS 09/19/14 [History] metFORMIN HCL [Glucophage] 500 mg PO BID 09/19/14 [History] Latanoprost [Xalatan 0.005%] 1 drop RIGHT EYE HS 09/22/15 [History] Venlafaxine HCl ER [Effexor XR] 150 mg PO DAILY 09/22/15 [History] Flecainide [Tambocor] 50 mg PO Q12HR #10 tablet 12/17/17 [Rx] Levothyroxine Sodium 100 mcg PO DAILY 01/02/18 [History] Metoprolol Tartrate [Lopressor] 50 mg PO BID@0900,1700 #60 tab 01/03/18 [Rx] Follow up Appointment(s)/Referral(s): Ilda Rivera DO [Primary Care Provider] - 3 Days Discharge Disposition: HOME SELF-CARE
[2018-01-03] MEDS: RIVAROXABAN 20 MG TAB PO SCH (15:28)
[2018-01-03 16:56] LABS: Glucose,Whole Blood 106 mg/dL (75-99)
[2018-01-03] MEDS: LATANOPROST 0.005% OPHTH DROPS 2.5 ML BTL RIGHT EYE SCH (20:13)
[2018-01-03] MEDS: ATORVASTATIN 40 MG TAB PO SCH (20:13)
[2018-01-03 21:12] LABS: Glucose,Whole Blood 181 mg/dL (75-99)
--- NOTE | 2018-01-03 21:27 | CONS ---
CONSULTATION Irais Booker is a 77-year-old lady who underwent a cryoablation performed by Dr. Allen about 2 weeks ago on December 16 or so. This lady went home. [place] well for a week, then started having fluttering sensation in the chest, palpitations, felt weak tired and extremely exhausted, hardly had any strength to stand up and came into the emergency room. She was found to be in atrial fibrillation with a rapid rate and also there was a question of mild heart failure as well. She has been hospitalized. The rate is somewhat better at this time. She seems to be resting comfortably at the time of my evaluation, but indicates to me that her stamina is very poor and she hardly has any strength. PAST MEDICAL HISTORY: 1. Remarkable for persistent atrial fibrillation, status post cryoablation by Dr. Allen 2 weeks ago. 2. Hypertension. 3. Hyperlipidemia. 4. Diabetes. 5. Sleep apnea with a BiPAP and thyroid disorder. 6. She is status post history of breast cancer and surgery as well. 7. Type 2 diabetes mellitus. MEDICATIONS: At home include levothyroxine 100 mcg daily, metoprolol tartrate which was increased to [address] Allen. Xarelto 20 mg daily, metformin 5 mg b.i.d., Aldactazide 25/25 one tablet daily, Xarelto 20 mg daily, aspirin 81 mg daily. PHYSICAL EXAMINATION: Blood pressure is 128/70, pulse rate is about 80-90, irregularly irregular. HEENT: Unremarkable. Fundus was not examined by me. NECK: Supple. There is no JVD. I do not hear a carotid bruit. Heart exam reveals S1, S2 with a irregular rate and rhythm. Short systolic murmur is noted. Lungs revealed decent air entry. Abdomen is soft. Lower extremities revealed diminished pulses. No edema. Central nervous system is normal. EKG from the emergency room yesterday revealed atrial fib, moderate ventricular rate, nonspecific ST-T changes. IMPRESSION: 1. Atrial fibrillation, persistent, status post recent pulmonary vein isolation, symptomatic. 2. Hypertension. 3. Type 2 diabetes mellitus. 4. Hyperlipidemia. RECOMMENDATIONS: I am recommending that we will increase Lopressor to 50 mg b.i.d. and flecainide 75 mg b.i.d. and increase activity and if patient does well clinically and the rate control is optimal, she can be discharged and follow up with Dr. Allen in one week. I discussed my thoughts in detail with the patient. Apparently, she also had a cardioversion for atrial tachycardia after the cryoablation. However, this rhythm appears to be atrial fib with a moderate ventricular rate. MMMALCOLML / IJN: [id number] /
[2018-01-03] MEDS: ALPRAZolam 0.25 MG TAB PO SCH (21:31)
[2018-01-04 06:09] LABS: Glucose,Whole Blood 105 mg/dL (75-99)
[2018-01-04] MEDS: LEVOTHYROXINE 100 MCG TAB PO SCH (06:31)
[2018-01-04] MEDS: metFORMIN 500 MG TAB PO SCH ×2 (06:32→17:14)
[2018-01-04] MEDS: ASPIRIN 81 MG PO SCH (08:25)
[2018-01-04] MEDS: FLECAINIDE 50 MG TAB PO SCH ×2 (08:25→22:13)
[2018-01-04] MEDS: METOPROLOL TARTRATE 50 MG TAB PO SCH ×3 (08:25→22:14)
[2018-01-04] MEDS: SODIUM CHLORIDE 0.9% 1,000 ML IV SCH (08:25)
[2018-01-04] MEDS: VENLAFAXINE HCL ER 150 MG CAP PO SCH (08:25)
[2018-01-04] MEDS ORDERED: METOPROLOL TARTRATE 25 MG TAB PO STA (09:40)
[2018-01-04 12:07] LABS: Glucose,Whole Blood 139 mg/dL (75-99)
--- NOTE | 2018-01-04 13:13 | P.DS ---
Providers Date of admission: 01/02/18 12:57 Attending physician: Jerson Thomas Consults: 01/02/18 12:46 Consult Physician Urgent Consulting Provider: Johanne Felix Consult Reason/Comments: a fib Do you want consulting provider notified?: Yes Primary care physician: Ilda Rivera [facility] Course: Patient was admitted for severe asymptomatic atrial fibrillation. Patient heart rate is fairly controlled now is in low 100s upon ambulation. Patient fatigue significantly improved after heart rate controlled. Patient will be a evaluated by cardiology and the cleared for discharge patient will be discharged today to follow with Dr. Vieira as an outpatient. No significant overnight events. Patient shortness of breath improved as well. Patient is on diuretic therapy because of hypotension this diuretic therapy is being held diuretic therapy is for hypertension I believe. 01/04/2018 Patient is clinically doing well no overnight events cardiology increase the dose of metoprolol to 75 3 times a day and if her heart rate is better controlled by the end of the day cardiology recommended to discharge the patient. PHYSICAL EXAMINATION: GENERAL: The patient is alert and oriented x3, not in any acute distress. Well developed, well nourished. Patient appears to be severely fatigued HEENT: Pupils are round and equally reacting to light. EOMI. No scleral icterus. No conjunctival pallor. Normocephalic, atraumatic. No pharyngeal erythema. No thyromegaly. CARDIOVASCULAR: S1 and S2 present. No murmurs, rubs, or gallops. Irregularly irregular rhythm tachycardic. PULMONARY: Chest is clear to auscultation, no wheezing or crackles. ABDOMEN: Soft, nontender, nondistended, normoactive bowel sounds. No palpable organomegaly. MUSCULOSKELETAL: No joint swelling or deformity. EXTREMITIES: No cyanosis, clubbing, or pedal edema. NEUROLOGICAL: Gross neurological examination did not reveal any focal deficits. SKIN: No rashes. Assessment and Plan Plan: -Generalized fatigue, palpitations: A. fib with rapid and regular rate: Patient will be continued on anticoagulations beta felipe dose will be increased. C -Asthma without any acute exacerbation 2 diabetes mellitus -Hypertension -Sleep apnea uses CPAP machine which will be continued -Hypothyroidism with elevated TSH probably sick euthyroid syndrome continue the same dose of levothyroxine without any changes for now and repeat TSH as an outpatient in about a month. -History of breast cancer status post bilateral mastectomy and cancer is in remission. Plan - Discharge Summary Discharge Rx Participant: No New Discharge Prescriptions: New Metoprolol Tartrate [Lopressor] 75 mg PO TID #90 tab Continue Aspirin EC [Ecotrin Low Dose] 81 mg PO DAILY Rivaroxaban [Xarelto] 20 mg PO DAILY@1700 metFORMIN HCL [Glucophage] 500 mg PO BID Simvastatin [Zocor] 80 mg PO HS Venlafaxine HCl ER [Effexor XR] 150 mg PO DAILY Latanoprost [Xalatan 0.005%] 1 drop RIGHT EYE HS Flecainide [Tambocor] 50 mg PO Q12HR #10 tablet Levothyroxine Sodium 100 mcg PO DAILY Discontinued Spironolactone-Hctz 25-25Mg [Aldactazide 25-25 MG] 1 tab PO DAILY Metoprolol Tartrate [Lopressor] 25 mg PO BID@0900,1700 Discharge Medication List Aspirin EC [Ecotrin Low Dose] 81 mg PO DAILY 09/19/14 [History] Rivaroxaban [Xarelto] 20 mg PO DAILY@1700 09/19/14 [History] Simvastatin [Zocor] 80 mg PO HS 09/19/14 [History] metFORMIN HCL [Glucophage] 500 mg PO BID 09/19/14 [History] Latanoprost [Xalatan 0.005%] 1 drop RIGHT EYE HS 09/22/15 [History] Venlafaxine HCl ER [Effexor XR] 150 mg PO DAILY 09/22/15 [History] Flecainide [Tambocor] 50 mg PO Q12HR #10 tablet 12/17/17 [Rx] Levothyroxine Sodium 100 mcg PO DAILY 01/02/18 [History] Metoprolol Tartrate [Lopressor] 75 mg PO TID #90 tab 01/04/18 [Rx] Follow up Appointment(s)/Referral(s): Ilda Rivera DO [Primary Care Provider] - 3 Days Discharge Disposition: HOME SELF-CARE
[2018-01-04] MEDS: RIVAROXABAN 20 MG TAB PO SCH (16:01)
--- NOTE | 2018-01-04 16:28 | PN ---
PROGRESS NOTE Mrs. Booker is in atrial fib rate. Control is better. Rate is at about 100 or so. With activity it goes up mildly. I am recommending that we increase her beta felipe to 75 mg t.i.d. Continue the flecainide as ordered. Her vitals are stable. No JVD. S1-S2 heard normally with irregular rate and rhythm. No significant murmurs. Lungs are clear. Abdomen is soft, nontender. Lower extremities reveal normal pulses. No edema. Central nervous system is normal. I am recommending that if the rate control is optimized, she can be discharged on her current medical regimen and see Dr. Allen in one week. MMODL / IJN: [id number] /
[2018-01-04 17:03] LABS: Glucose,Whole Blood 109 mg/dL (75-99)
[2018-01-04 20:40] LABS: Glucose,Whole Blood 116 mg/dL (75-99)
[2018-01-04] MEDS: ALPRAZolam 0.25 MG TAB PO SCH (22:13)
[2018-01-04] MEDS: ATORVASTATIN 40 MG TAB PO SCH (22:14)
[2018-01-04] MEDS: LATANOPROST 0.005% OPHTH DROPS 2.5 ML BTL RIGHT EYE SCH (22:14)
[2018-01-05 05:56] LABS: Glucose,Whole Blood 121 mg/dL (75-99)
[2018-01-05] MEDS: LEVOTHYROXINE 100 MCG TAB PO SCH (06:07)
[2018-01-05] MEDS: metFORMIN 500 MG TAB PO SCH (06:07)
[2018-01-05] MEDS: ASPIRIN 81 MG PO SCH (09:05)
[2018-01-05] MEDS: FLECAINIDE 50 MG TAB PO SCH (09:05)
[2018-01-05] MEDS: METOPROLOL TARTRATE 50 MG TAB PO SCH (09:05)
[2018-01-05 09:26] VITALS: BP 117/66; PULSE 110; TEMP 97
--- NOTE | 2018-01-05 10:49 | P.DS ---
Providers Date of admission: 01/02/18 12:57 Attending physician: Jerson Thomas Consults: 01/02/18 12:46 Consult Physician Urgent Consulting Provider: Johanne Felix Consult Reason/Comments: a fib Do you want consulting provider notified?: Yes Primary care physician: Ilda Rivera [facility] Course: Please refer to my discharge summary from yesterday for further details and the patient was not discharged yesterday as her heart rate was not well controlled which is much better controlled today. Patient was cleared for discharge. PHYSICAL EXAMINATION: GENERAL: The patient is alert and oriented x3, not in any acute distress. Well developed, well nourished. HEENT: Pupils are round and equally reacting to light. EOMI. No scleral icterus. No conjunctival pallor. Normocephalic, atraumatic. No pharyngeal erythema. No thyromegaly. CARDIOVASCULAR: S1 and S2 present. No murmurs, rubs, or gallops. Irregularly irregular rhythm PULMONARY: Chest is clear to auscultation, no wheezing or crackles. ABDOMEN: Soft, nontender, nondistended, normoactive bowel sounds. No palpable organomegaly. MUSCULOSKELETAL: No joint swelling or deformity. EXTREMITIES: No cyanosis, clubbing, or pedal edema. NEUROLOGICAL: Gross neurological examination did not reveal any focal deficits. SKIN: No rashes. Patient Condition at Discharge: Stable Plan - Discharge Summary Discharge Rx Participant: No New Discharge Prescriptions: New Metoprolol Tartrate [Lopressor] 75 mg PO TID #90 tab Flecainide [Tambocor] 75 mg PO Q12HR #60 tablet Continue Aspirin EC [Ecotrin Low Dose] 81 mg PO DAILY Rivaroxaban [Xarelto] 20 mg PO DAILY@1700 metFORMIN HCL [Glucophage] 500 mg PO BID Simvastatin [Zocor] 80 mg PO HS Venlafaxine HCl ER [Effexor XR] 150 mg PO DAILY Latanoprost [Xalatan 0.005%] 1 drop RIGHT EYE HS Levothyroxine Sodium 100 mcg PO DAILY Discontinued Spironolactone-Hctz 25-25Mg [Aldactazide 25-25 MG] 1 tab PO DAILY Metoprolol Tartrate [Lopressor] 25 mg PO BID@0900,1700 Flecainide [Tambocor] 50 mg PO Q12HR #10 tablet Discharge Medication List Aspirin EC [Ecotrin Low Dose] 81 mg PO DAILY 09/19/14 [History] Rivaroxaban [Xarelto] 20 mg PO DAILY@1700 09/19/14 [History] Simvastatin [Zocor] 80 mg PO HS 09/19/14 [History] metFORMIN HCL [Glucophage] 500 mg PO BID 09/19/14 [History] Latanoprost [Xalatan 0.005%] 1 drop RIGHT EYE HS 09/22/15 [History] Venlafaxine HCl ER [Effexor XR] 150 mg PO DAILY 09/22/15 [History] Levothyroxine Sodium 100 mcg PO DAILY 01/02/18 [History] Metoprolol Tartrate [Lopressor] 75 mg PO TID #90 tab 01/04/18 [Rx] Flecainide [Tambocor] 75 mg PO Q12HR #60 tablet 01/05/18 [Rx] Follow up Appointment(s)/Referral(s): Bryant Allen MD [STAFF PHYSICIAN] - 1 Week (Office to call with follow up appointment.) Ilda Rivera DO [Primary Care Provider] - 01/16/18 9:00 am Patient Instructions/Handouts: A-fib (Atrial Fibrillation) (DC) Discharge Disposition: HOME SELF-CARE
== END 2018-01-05 09:58 | disposition home or self-care (01) ==
LOC: EC 10:24 → 6SEL 12:57
PROVIDERS: ADMIT Internal Medicine; ATTEND Internal Medicine
DX: I48.1 Persistent atrial fibrillation (principal); J45.909 Unspecified asthma, uncomplicated; E11.9 Type 2 diabetes mellitus without complications; I10 Essential (primary) hypertension; E03.9 Hypothyroidism, unspecified; E78.5 Hyperlipidemia, unspecified; H40.9 Unspecified glaucoma; G47.33 Obstructive sleep apnea (adult) (pediatric); Z99.89 Dependence on other enabling machines and devices; E66.9 Obesity, unspecified; Z68.32 Body mass index [BMI] 32.0-32.9, adult; Z79.01 Long term (current) use of anticoagulants; Z79.899 Other long term (current) drug therapy; Z79.82 Long term (current) use of aspirin; Z79.890 Hormone replacement therapy; Z88.5 Allergy status to narcotic agent; Z88.8 Allergy status to other drugs, medicaments and biological substances; Z79.84 Long term (current) use of oral hypoglycemic drugs; Z85.3 Personal history of malignant neoplasm of breast; Z87.891 Personal history of nicotine dependence; M19.90 Unspecified osteoarthritis, unspecified site; Z87.01 Personal history of pneumonia (recurrent); Z90.49 Acquired absence of other specified parts of digestive tract; Z90.13 Acquired absence of bilateral breasts and nipples; Z80.3 Family history of malignant neoplasm of breast; Z83.49 Family history of other endocrine, nutritional and metabolic diseases; Z80.8 Family history of malignant neoplasm of other organs or systems
CPT/HCPCS: 99285 ×2; 96360 ×2; 96361 ×5; 36415; 94760; 93005; 84439; 84481; 83880; 80053; 82550; 82553; 83735; 84100; 84443; 84484; 85025; 85610; 85730; 81001; 71046; 70450; G0378 ×4

== ENCOUNTER → 2018-01-13 | Outpatient (CLI) | payer MEDICARE | END | disposition home or self-care (01) | LOC: RADECHMAIN 12:00 | PROVIDERS: ATTEND Internal Medicine Clinical Cardiac Electrophysiology | DX: I47.1 Supraventricular tachycardia (principal); R00.1 Bradycardia, unspecified; I48.1 Persistent atrial fibrillation | CPT/HCPCS: 93225; 93226 ==

== ENCOUNTER 2018-05-28 12:47 | Day surgery (SDC) | payer MEDICARE ==
[2018-05-19 15:17] VITALS: BMI 31.1
[~2018-05-28 12:47] MED LIST changes: -LACTATED RINGERS 1,000 ML IV SCH; -LIDOCAINE 1% 20 ML VIAL (10MG/ML) FOR IV START INTRADERMA PRN; +ceFAZolin 1,000 MG in SODIUM CHLORIDE 0.9% IRRIGATIO 250 ML IRRIGATION ONE; +ceFAZolin IN SWFI 2 GM/20 ML SYRINGE IVP ONE
[2018-05-28 13:56] LABS: Glucose,Whole Blood 93 mg/dL (75-99)
[2018-05-28 14:09] LABS: Basophils % (A) 0 %; Eosinophils # (A) 0.3 k/uL (0-0.7); Eosinophils % (A) 4 %; HCT 38.9 % (34.0-46.0); HGB 12.6 gm/dL (11.4-16.0); Hypochromasia Slight; Lymphocytes # (A) 1.2 k/uL (1.0-4.8); Lymphocytes % (A) 17 %; MCH 28.6 pg (25.0-35.0); MCHC 32.4 g/dL (31.0-37.0); MCV 88.4 fL (80.0-100.0); Mean Platelet Volume 7.4; Monocytes # (A) 0.5 k/uL (0-1.0); Monocytes % (A) 7 %; Neutrophils # (A) 4.9 k/uL (1.3-7.7); Neutrophils % (A) 69 %; Platelet Count 256 k/uL (150-450); RBC 4.41 m/uL (3.80-5.40); RDW 15.8 % (11.5-15.5); WBC 7.1 k/uL (3.8-10.6)
[2018-05-28 14:13] LABS: Anion Gap 7 mmol/L; Blood Urea Nitrogen 24 mg/dL (7-17); Calcium 9.1 mg/dL (8.4-10.2); Carbon Dioxide 24 mmol/L (22-30); Chloride 108 mmol/L (98-107); Glucose 93 mg/dL (74-99); Sodium 139 mmol/L (137-145)
[2018-05-28 14:14] LABS: Potassium 5.3 mmol/L (3.5-5.1)
[2018-05-28] MEDS: SODIUM CHLORIDE 0.9% 1,000 ML IV SCH ×2 (14:22→20:15)
[2018-05-28] MEDS ORDERED: IOPAMIDOL-250 50ML BTL IV ONE (16:18)
[2018-05-28] MEDS ORDERED: LIDOCAINE 1% INJ 10MG/ML (20 ML MDV) ONE ×2 (16:23)
[2018-05-28] MEDS ORDERED: LIDOCAINE 1% INJ 10MG/ML (20 ML MDV) SQ ONE (16:41)
[2018-05-28] MEDS ORDERED: SODIUM CHLORIDE 0.9% 500 ML 500 ML IV ONE (17:02)
[2018-05-28] MEDS ORDERED: LACTATED RINGERS 1,000 ML IV ONE (17:02)
[2018-05-28] MEDS ORDERED: ACETAMINOPHEN TAB 325 MG TAB PO PRN (18:31)
[2018-05-28] MEDS ORDERED: ACETAMINOPHEN IV (For NPO) 1,000 MG in EMPTY BAG 1 BAG IVPB ONE (20:00)
[2018-05-28] MEDS: LACTATED RINGERS 1,000 ML IV SCH (20:15)
[2018-05-28] MEDS: METOPROLOL TARTRATE 25 MG TAB PO SCH (20:18)
[2018-05-28] MEDS: HYDROcodone/APAP 5-325MG 1 EACH TAB PO PRN ×2 (20:23→23:55)
[2018-05-28 20:37] LABS: Glucose,Whole Blood 103 mg/dL (75-99)
[2018-05-28] MEDS: metFORMIN 500 MG TAB PO SCH (20:37)
[2018-05-28] MEDS ORDERED: ATORVASTATIN 40 MG TAB PO SCH (21:00)
[2018-05-28] MEDS ORDERED: LATANOPROST 0.005% OPHTH DROPS 2.5 ML BTL RIGHT EYE SCH (21:00)
[2018-05-28] MEDS: FLECAINIDE 50 MG TAB PO SCH (21:08)
--- NOTE | 2018-05-28 21:33 | PCN ---
PROCEDURE NOTE Irais Booker is a 78-year-old female with a history of a persistent atrial fibrillation with RVR drug refractory. She has paroxysmal atrial fibrillation. She also has underlying sick sinus syndrome with AV node disease. She was brought in for a biventricular pacemaker/His bundle pacing followed by at a later date, AV node ablation. Patient was brought to the EP lab in a fasting state. Written informed consent was obtained prior to the procedure. The left shoulder area was prepped and draped as per protocol. 1% lidocaine was used for local anesthesia. A 4 cm incision made parallel to the deltopectoral groove, about 1.5 cm medial to it. The incision was carried down to the level of the pectoralis muscle. A subfascial pocket was made. Hemostasis was assured. The left axillary vein was accessed at 3 separate points under fluoroscopy and via appropriately-sized introducer sheaths 3 leads were positioned. The atrial lead was a [employer] model #4574, 45 cm in length and serial number [id number]. This was positioned the right atrial appendage. P waves were 4.4 mV. Pacing impedance of 597 ohms, pacing threshold of 0.8 V at 0.5 milliseconds. 10 V test negative. The RV lead was positioned in the RV apex. This was a passive lead. Model #4074, 58 cm in length and serial #[id number]. R-waves 18.5 mV. Pacing impedance 1168 ohms, pacing threshold 0.6 V at 0.5 milliseconds. 10 V test negative. The third lead was screwed in the His bundle area and at high outputs ventricular muscle capture was noted but at lower outputs nonselective capture was noted. Loss of nonselective capture was noted at 0.8 V at 1 millisecond. Pacing impedance of 567 ohms. The device was then programmed to DDD at 50 bpm with AV delay 134/100 milliseconds to promote HIS bundle pacing. Patient tolerated the procedure well without any acute complications. PLAN: Once lead stability and threshold stability is insured, AV node ablation will be recommended for atrial fibrillation management. At this time, metoprolol is being changed to Toprol-XL 200 mg p.o. daily. Flecainide is being changed to 100 mg twice daily. FINAL DIAGNOSES: 1. Sick sinus syndrome. 2. AV node disease. 3. Bradycardia. 4. Paroxysmal atrial fibrillation with long paroxysms lasting for several days at a time. MMODL / IJN: [id number] /
[2018-05-28] MEDS: ceFAZolin IN SWFI 2 GM/20 ML SYRINGE IVP SCH (23:55)
[2018-05-29] MEDS: SODIUM CHLORIDE 0.9% 1,000 ML IV SCH ×2 (01:36)
[2018-05-29] MEDS: ceFAZolin IN SWFI 2 GM/20 ML SYRINGE IVP SCH ×2 (02:59→10:40)
[2018-05-29 03:54] VITALS: RESP 18
[2018-05-29] MEDS: HYDROcodone/APAP 5-325MG 1 EACH TAB PO PRN (05:44)
[2018-05-29] MEDS ORDERED: LEVOTHYROXINE 112 MCG TAB PO SCH (06:30)
[2018-05-29 06:46] LABS: Glucose,Whole Blood 112 mg/dL (75-99)
--- NOTE | 2018-05-29 08:07 | P.DS ---
Providers Attending physician: Bryant Allen Primary care physician: I[facility] Course: Patient is doing well. Mild discomfort over the pacemaker site. Mild soakage no hematoma Vitals are stable no chest discomfort no breathing trouble lying comfortably in bed On examination blood pressure 118/61 mmHg pulse rate in the 50s afebrile Breath sounds are reduced bilaterally with scattered rhonchi Heart sounds S1 and S2 are normal no murmurs or gallops no rub Abdomen soft nontender External is warm no edema Impression Sick sinus syndrome symptomatic requiring reduction in medication doses AV node disease requiring reduction in A. fib medications Long paroxysms of atrial fibrillation lasting days number symptomatic and refractory to low-dose flecainide Status post permanent pacemaker implantation with physiologic septal pacing Suggest Discharge home if the pacemaker is functioning normally chest x-ray is within normal limits and antibiotics are completed Flecainide 100 mg twice daily Metoprolol succinate 200 mg by mouth daily Continue and granulation Follow-up in the device clinic in 5 days Plan - Discharge Summary Discharge Rx Participant: No New Discharge Prescriptions: New RX: Flecainide [Tambocor] 100 mg PO Q12HR #180 tablet RX: Metoprolol Succinate [Toprol XL] 200 mg PO DAILY #90 tab.er.24h Discontinued RX: Metoprolol Tartrate [Lopressor] 75 mg PO TID #90 tab RX: Flecainide [Tambocor] 50 mg PO TID No Action RX: Aspirin EC [Ecotrin Low Dose] 81 mg PO DAILY RX: Rivaroxaban [Xarelto] 20 mg PO DAILY@1700 RX: metFORMIN HCL [Glucophage] 500 mg PO BID RX: Simvastatin [Zocor] 80 mg PO HS RX: Venlafaxine HCl ER [Effexor XR] 225 mg PO DAILY RX: Latanoprost [Xalatan 0.005%] 1 drop RIGHT EYE HS Losartan [Cozaar] 25 mg PO DAILY Levothyroxine Sodium [Synthroid] 112 mcg PO DAILY Fluticasone Nasal [place] [Flonase Nasal [place]] 2 spr EA NOSTRIL DAILY Discharge Medication List RX: Aspirin EC [Ecotrin Low Dose] 81 mg PO DAILY 09/19/14 [History] RX: Rivaroxaban [Xarelto] 20 mg PO DAILY@1700 09/19/14 [History] RX: Simvastatin [Zocor] 80 mg PO HS 09/19/14 [History] RX: metFORMIN HCL [Glucophage] 500 mg PO BID 09/19/14 [History] RX: Latanoprost [Xalatan 0.005%] 1 drop RIGHT EYE HS 09/22/15 [History] RX: Venlafaxine HCl ER [Effexor XR] 225 mg PO DAILY 09/22/15 [History] Fluticasone Nasal [place] [Flonase Nasal [place]] 2 spr EA NOSTRIL DAILY 05/19/18 [ History] Levothyroxine Sodium [Synthroid] 112 mcg PO DAILY 05/19/18 [History] Losartan [Cozaar] 25 mg PO DAILY 05/19/18 [History] RX: Flecainide [Tambocor] 100 mg PO Q12HR #180 tablet 05/28/18 [Rx] RX: Metoprolol Succinate [Toprol XL] 200 mg PO DAILY #90 tab.er.24h 05/28/18 [Rx ] Follow up Appointment(s)/Referral(s): Bryant Allen MD [STAFF PHYSICIAN] - 1 Week (Device clinic follow-up in 5 days Follow-up Dr. Vieira/Jumana Bagley VRT MECHANIC in 6-8 weeks) Activity/Diet/Wound Care/Special Instructions: PATIENT EDUCATION MATERIAL Instructions following a heart rhythm device implant. 1. Keep dressing DRY for 5 DAYS. You may cover the area with Saran or Cling Wrap, prior to a shower. 2. The dressing will be removed in the Device Clinic at [facility]. Absorbable sutures were used to close the wound. 3. Avoid raising the left arm above the shoulder level. 4 week restriction 4. Avoid arm movements, like backscratching, rubbing the head, or pulling on a cord. 4 weeks restriction 5. Gentle range of motion movements of the shoulder, closest to the incision should be performed to avoid a frozen shoulder. (Pendulum exercises of the shoulder) 6. The opposite arm may be used freely. 7. Avoid driving for 7 days. 8. Avoid activities such as golfing, swimming, weed whacking, lifting more than 10 pounds weight, bowling, gymnastics and weight training/lifting. (6 weeks restriction) 9. Activities such as wood chopping with an axe, pull-ups in the gymnasium, power lifting, arc-welding, being close to home induction cooktops will always be a problem. 10. Arm sling is only a reminder not to raise the arm above the head. You do not need to keep the arm completely immobilized. Your free to move the arm and use it and for normal activities. In case of any problems, please call [facility], @ [phone], Attention: Device Clinic Device clinic follow-up in 5 days Follow-up with primary winding lathe operator in 2-3 months Change flecainide dose 100 mg twice daily flecainide Stop metoprolol tartrate Start metoprolol succinate 200 mg by mouth daily in the morning Discharge Disposition: HOME SELF-CARE
[2018-05-29] MEDS ORDERED: LOSARTAN 25 MG TAB PO SCH (09:00)
[2018-05-29] MEDS ORDERED: VENLAFAXINE HCL ER 75 MG CAP PO SCH (09:00)
[2018-05-29] MEDS ORDERED: FLUTICASONE 50MCG/SPRAY NASAL 16GM EA NOSTRIL SCH (09:00)
[2018-05-29] MEDS ORDERED: ASPIRIN 81 MG PO SCH (09:00)
[2018-05-29] MEDS: FLECAINIDE 50 MG TAB PO SCH (09:10)
[2018-05-29] MEDS: METOPROLOL TARTRATE 25 MG TAB PO SCH (09:11)
[2018-05-29] MEDS: metFORMIN 500 MG TAB PO SCH (09:12)
[2018-05-29 11:29] VITALS: BP 125/75; PULSE 60; TEMP 97.9
--- NOTE | 2018-05-29 12:56 | XR ---
EXAMINATION TYPE: XR chest 2V DATE OF EXAM: 05/29/2018 COMPARISON: Prior chest x-ray 01/02/2018 HISTORY: Lead placement check TECHNIQUE: Frontal and lateral views of the chest are obtained. FINDINGS: There is been interval placement of a generator in left pectoral region, leads are present in the right atrium and ventricle. Heart remains enlarged. No pneumothorax or pleural effusion. Surg ical clips present in the upper abdomen. IMPRESSION: No evident complication status post pacemaker placement
[2018-05-29] MEDS ORDERED: RIVAROXABAN 20 MG TAB PO SCH (17:00)
== END 2018-05-29 12:03 | disposition home or self-care (01) ==
LOC: CATHEP 12:47 → 1SOBS 18:29 → CATHEP 05-29 12:03
PROVIDERS: ATTEND Internal Medicine Clinical Cardiac Electrophysiology
DX: I48.0 Paroxysmal atrial fibrillation (principal); I44.0 Atrioventricular block, first degree; I49.5 Sick sinus syndrome; I11.0 Hypertensive heart disease with heart failure; I50.9 Heart failure, unspecified; E78.5 Hyperlipidemia, unspecified; E11.9 Type 2 diabetes mellitus without complications; Z79.84 Long term (current) use of oral hypoglycemic drugs; J45.909 Unspecified asthma, uncomplicated; G47.33 Obstructive sleep apnea (adult) (pediatric); Z85.3 Personal history of malignant neoplasm of breast; E07.9 Disorder of thyroid, unspecified; Z79.890 Hormone replacement therapy; Z79.01 Long term (current) use of anticoagulants; Z79.82 Long term (current) use of aspirin; Z79.899 Other long term (current) drug therapy; Z88.5 Allergy status to narcotic agent; Z88.8 Allergy status to other drugs, medicaments and biological substances
CPT/HCPCS: 33208; 80048; 85025; 83036; 71046; C1769 ×3; C1892; C1898 ×2; C2621; J0690 ×3; J2001; Q9966

== ENCOUNTER → 2018-06-04 | Outpatient (CLI) | payer MEDICARE | LOC: LABWHC1 09:16 | PROVIDERS: ATTEND Nurse Practitioner Adult Health | DX: E87.5 Hyperkalemia (principal) | CPT/HCPCS: 36415; 84132 ==

== ENCOUNTER → 2018-06-19 | Outpatient (CLI) | payer MEDICARE ==
--- NOTE | 2018-06-19 11:05 | FL ---
ESOPHOGRAM. HISTORY: Dysphagia Esophagram was performed per the air contrast technique. The patient swallowed barium and effervesce nt crystals without difficulty or delay. Esophageal peristalsis and motility appear to be within normal limits. There is no evidence for filling defect, mass or diverticulum. No hiatal hernia seen. There is evidence for aspiration examination was terminated at that point in time. IMPRESSION: 1. Aspiration. Speech pathology consult recommended.
== END ==
LOC: RADFLWHC 09:25
PROVIDERS: ATTEND Family Medicine
DX: R47.02 Dysphasia (principal)
CPT/HCPCS: 74220

== ENCOUNTER → 2018-06-23 | Outpatient (CLI) | payer MEDICARE ==
--- NOTE | 2018-06-23 11:34 | FL ---
EXAMINATION TYPE: FL barium swallow w video DATE OF EXAM: 06/23/2018 MODIFIED SWALLOW / DEGLUTITION STUDY CLINICAL HISTORY: Dysphagia. Recent abnormal esophagram with aspiration. TECHNIQUE: Deglutition study is performed utilizing thin liquid barium, honey and nectar thick liqui d barium, barium thick applesauce, and barium coated cracker. A total of 1.32 minutes of fluoroscopic time was utilized during today's study. 0 images are saved to PACS. COMPARISON: Esophagram from 4 days ago. FINDINGS: The oral and pharyngeal phases show satisfactory initiation and propagation with all modali ties tested. Normal mastication is seen with solid modalities tested. There is no evidence of penet ration or aspiration with any modality tested. No significant pharyngeal residue was appreciated. IMPRESSION: No penetration or aspiration today. Please refer to speech therapist notes for further d etails if necessary.
== END ==
LOC: RADFLMAIN 10:51
PROVIDERS: ATTEND Family Medicine
DX: R47.02 Dysphasia (principal); Y84.4 Aspiration of fluid as the cause of abnormal reaction of the patient, or of later complication, without mention of misadventure at the time of the procedure
CPT/HCPCS: 74230

== ENCOUNTER 2018-08-26 11:43 | Emergency (ER) | payer MEDICARE ==
[2018-08-26 11:48] VITALS: TEMP 98.7
--- NOTE | 2018-08-26 12:25 | ED ---
General Adult HPI - General Chief complaint: Psychiatric Symptoms Stated complaint: Hallucinations Time Seen by Provider: 08/26/18 11:50 Source: patient, RN notes reviewed Mode of arrival: ambulatory Limitations: no limitations - History of Present Illness Initial comments: Patient is a pleasant 78-year-old female presenting to the emergency department following 2 episodes of hallucinations this morning. is present to help provide history. Patient had an episode where she saw her 's mother who was arty . Another episode she saw one of the grandchildren. Patient was not threatened or paranoid. Patient did not have any auditory hallucinations. No suicidal or homicidal thoughts. No new physical complaints. Patient has been under increased stress recently. Patient is very distraught about not being able to see Dr. Allen anymore. Patient does have a new airplane patroller at this time and has no chest complaints. No history of previous hallucinations. Patient does have occasional forgetfulness otherwise no new confusion. - Related Data Home Medications Medication Instructions Recorded Confirmed Aspirin EC [Ecotrin Low Dose] 81 mg PO DAILY 09/19/14 08/26/18 Rivaroxaban [Xarelto] 20 mg PO DAILY@1700 09/19/14 08/26/18 Simvastatin [Zocor] 80 mg PO HS 09/19/14 08/26/18 metFORMIN HCL [Glucophage] 500 mg PO BID 09/19/14 08/26/18 Latanoprost [Xalatan 0.005%] 1 drop RIGHT EYE HS 09/22/15 08/26/18 Venlafaxine HCl ER [Effexor XR] 150 mg PO DAILY 09/22/15 08/26/18 Levothyroxine Sodium [Synthroid] 112 mcg PO DAILY 05/19/18 08/26/18 Losartan [Cozaar] 25 mg PO DAILY 05/19/18 08/26/18 Calcium Carbonate [Calcium] 1,200 mg PO BID 08/26/18 08/26/18 Flecainide Acetate 100 mg PO BID 08/26/18 08/26/18 Venlafaxine HCl ER [Effexor Xr] 75 mg PO DAILY 08/26/18 08/26/18 Previous Rx's Medication Instructions Recorded Metoprolol Succinate [Toprol XL] 200 mg PO DAILY #90 tab.er.24h 05/28/18 Allergies Allergy/AdvReac Type Severity Reaction Status Date / Time codeine Allergy Unknown Verified 08/26/18 11:45 Childhood NITRO PATCH AdvReac Severe Shakes/patient Uncoded 05/28/18 14:15 got very cold Review of Systems ROS Statement: Those systems with pertinent positive or pertinent negative responses have been documented in the HPI. ROS Other: All systems not noted in ROS Statement are negative. Constitutional: Denies: fever Eyes: Denies: eye pain ENT: Denies: ear pain Respiratory: Denies: cough, dyspnea Cardiovascular: Denies: chest pain Endocrine: Denies: fatigue Gastrointestinal: Denies: abdominal pain Genitourinary: Denies: dysuria Musculoskeletal: Denies: back pain Skin: Denies: rash Neurological: Denies: headache, weakness Psychiatric: Reports: anxiety, visual hallucinations. Denies: auditory hallucinations, homicidal thoughts, suicidal thoughts Past Medical History Past Medical History: Atrial Fibrillation, Asthma, Cancer, Diabetes Mellitus, Hyperlipidemia, Hypertension, Osteoarthritis (OA), Pneumonia, Sleep Apnea/CPAP/ BIPAP, Syncope, Thyroid Disorder Additional Past Medical History / Comment(s): See Dr Allen's H&P, Other hx : AFib/RVR, bronchial asthma, pneumonia 20 yrs ago, EDGAR without device, sinus problems at times, NIDDM type II, L breast cancer with surgery, R eye glaucoma, varicose veins L leg, current rt ear infection with antibiotic tx History of Any Multi-Drug Resistant Organisms: None Reported Past Surgical History: Adenoidectomy, Breast Surgery, Cardiac Ablation, Cholecystectomy, Heart Catheterization, Hysterectomy, Tonsillectomy Additional Past Surgical History / Comment(s): 12/16/17 Cardiac ablation for Afib , Tilt table test, 2008 cardiac cath-normal, 2010 L breast mastectomy d/t cancer and then 4 months later had R mastectomy done prophylactically, bilateral cataract removals, loop placed then removed Past Anesthesia/Blood Transfusion Reactions: No Reported Reaction Past Psychological History: No Psychological Hx Reported Smoking Status: Never smoker Past Alcohol Use History: None Reported Past Drug Use History: None Reported - Past Family History Father Family Medical History: Cancer, Thyroid Disorder Additional Family Medical History / Comment(s): spleen cancer Mother Family Medical History: Cancer Additional Family Medical History / Comment(s): breast cancer twice General Exam Limitations: no limitations General appearance: alert, in no apparent distress Head exam: Present: atraumatic Eye exam: Present: normal appearance, PERRL, EOMI Neck exam: Present: normal inspection Respiratory exam: Present: normal lung sounds bilaterally Cardiovascular Exam: Present: regular rate, normal rhythm GI/Abdominal exam: Present: soft. Absent: tenderness Extremities exam: Present: normal inspection Neurological exam: Present: alert, oriented X3. Absent: motor sensory deficit Expanded Motor strength exam: RUE: 5, LUE: 5, RLE: 5, LLE: 5 Eye Response: (4) open spontaneously Motor Response: (6) obeys commands Verbal Response: (5) oriented Psychiatric exam: Present: anxious (Patient becomes very anxious and tearful when discussing situation with Dr. Allen.) Skin exam: Present: normal color Course Vital Signs 08/26/18 11:45 Temperature 98.7 F Pulse Rate 118 H Respiratory 18 Rate Blood Pressure 137/85 O2 Sat by Pulse 96 Oximetry Medical Decision Making - Medical Decision Making Patient was seen by mental health services and provided follow-up information. - Lab Data Result diagrams: 08/26/18 12:40 08/26/18 12:40 Lab Results 08/26/18 08/26/18 08/26/18 Range/Units 12:40 12:40 12:40 WBC 8.3 (3.8-10.6) k/uL RBC 4.52 (3.80-5.40) m/uL Hgb 11.6 (11.4-16.0) gm/dL Hct 37.6 (34.0-46.0) % MCV 83.0 (80.0-100.0) fL MCH 25.6 (25.0-35.0) pg MCHC 30.9 L (31.0-37.0) g/dL RDW 16.5 H (11.5-15.5) % Plt Count 283 (150-450) k/uL Neutrophils % 73 % Lymphocytes % 13 % Monocytes % 7 % Eosinophils % 4 % Basophils % 1 % Neutrophils # 6.1 (1.3-7.7) k/uL Lymphocytes # 1.1 (1.0-4.8) k/uL Monocytes # 0.6 (0-1.0) k/uL Eosinophils # 0.3 (0-0.7) k/uL Basophils # 0.0 (0-0.2) k/uL Hypochromasia Marked Anisocytosis Slight Sodium 142 (137-145) mmol/L Potassium 4.4 (3.5-5.1) mmol/L Chloride 109 H (98-107) mmol/L Carbon Dioxide 24 (22-30) mmol/L Anion Gap 9 mmol/L BUN 21 H (7-17) mg/dL Creatinine 0.65 (0.52-1.04) mg/dL Est GFR (CKD-EPI)AfAm >90 (>60 ml/min/1.73 sqM) Est GFR (CKD-EPI)NonAf 86 (>60 ml/min/1.73 sqM) Glucose 113 H (74-99) mg/dL Calcium 9.3 (8.4-10.2) mg/dL Urine Color Yellow Urine Appearance Clear (Clear) Urine pH 6.0 (5.0-8.0) Ur Specific [place] 1.039 H (1.001-1.035) Urine Protein 1+ H (Negative) Urine Glucose (UA) Negative (Negative) Urine Ketones Trace H (Negative) Urine Blood Negative (Negative) Urine Nitrite Negative (Negative) Urine Bilirubin Negative (Negative) Urine Urobilinogen 3.0 (<2.0) mg/dL Ur Leukocyte Esterase Moderate H (Negative) Urine RBC 5 (0-5) /hpf Urine WBC 11 H (0-5) /hpf Ur Squamous Epith Cells 6 H (0-4) /hpf Urine Bacteria Rare H (None) /hpf Urine Mucus Rare H (None) /hpf Urine Opiates Screen Not Detected (NotDetected) Ur Oxycodone Screen Not Detected (NotDetected) Urine Methadone Screen Not Detected (NotDetected) Ur Propoxyphene Screen Not Detected (NotDetected) Ur Barbiturates Screen Not Detected (NotDetected) U Tricyclic Antidepress Not Detected (NotDetected) Ur Phencyclidine Scrn Not Detected (NotDetected) Ur Amphetamines Screen Not Detected (NotDetected) U Methamphetamines Scrn Not Detected (NotDetected) U Benzodiazepines Scrn Not Detected (NotDetected) Urine Cocaine Screen Not Detected (NotDetected) U Marijuana (THC) Screen Not Detected (NotDetected) Serum Alcohol <10 mg/dL Disposition Clinical Impression: Hallucinations Disposition: HOME SELF-CARE Condition: Stable Instructions (If sedation given, give patient instructions): Hallucinations (ED ) Additional Instructions: Please follow-up with mental health services as directed. Please follow-up with primary care physician this week. Return for increased hallucinations, paranoid thoughts, concerns regarding harm to self or others, worsening symptoms or other concerns. Is patient prescribed a controlled substance at d/c from ED?: No Referrals: Ilda Rivera DO [Primary Care Provider] - 1-2 days Time of Disposition: 15:56
[2018-08-26 13:26] LABS: Alcohol <10 mg/dL; Anion Gap 9 mmol/L; Blood Urea Nitrogen 21 mg/dL (7-17); Calcium 9.3 mg/dL (8.4-10.2); Carbon Dioxide 24 mmol/L (22-30); Chloride 109 mmol/L (98-107); Glucose 113 mg/dL (74-99); Potassium 4.4 mmol/L (3.5-5.1); Sodium 142 mmol/L (137-145)
[2018-08-26 13:31] LABS: Anisocytosis Slight; Appearance,Urine Clear (Clear); Bacteria,Urine Rare /hpf; Basophils % (A) 1 %; Bilirubin,Urine Negative (Negative); Blood,Urine Negative (Negative); Color,Urine Yellow; Eosinophils # (A) 0.3 k/uL (0-0.7); Eosinophils % (A) 4 %; Glucose,Urine (UA) Negative (Negative); HCT 37.6 % (34.0-46.0); HGB 11.6 gm/dL (11.4-16.0); Hypochromasia Marked; Ketones,Urine Trace (Negative); Leukocyte Esterase,Urine Moderate (Negative); Lymphocytes # (A) 1.1 k/uL (1.0-4.8); Lymphocytes % (A) 13 %; MCH 25.6 pg (25.0-35.0); MCHC 30.9 g/dL (31.0-37.0); Mean Platelet Volume 6.9; Monocytes # (A) 0.6 k/uL (0-1.0); Monocytes % (A) 7 %; Mucus,Urine Rare /hpf; Neutrophils # (A) 6.1 k/uL (1.3-7.7); Neutrophils % (A) 73 %; Nitrite,Urine Negative (Negative); Platelet Count 283 k/uL (150-450); Protein,Urine 1+ (Negative); RBC 4.52 m/uL (3.80-5.40); RBC,Urine 5 /hpf (0-5); RDW 16.5 % (11.5-15.5); Specific Gravity,Urine 1.039 (1.001-1.035); Squamous Epithelial Cell,Urine 6 /hpf (0-4); WBC 8.3 k/uL (3.8-10.6); WBC,Urine 11 /hpf (0-5)
[2018-08-26 13:35] LABS: Amphetamine Screen,Urine Not Detected (NotDetected); Barbiturate Screen,Urine Not Detected (NotDetected); Benzodiazepines Screen,Urine Not Detected (NotDetected); Cocaine Screen,Urine Not Detected (NotDetected); Methadone Screen, Urine Not Detected (NotDetected); Opiate Screen,Urine Not Detected (NotDetected); Oxycodone Screen, Urine Not Detected (NotDetected); Phencyclidine Screen,Urine Not Detected (NotDetected); Tricyclic Antidepressant,Urine Not Detected (NotDetected); Urn Cannabinoid Scrn Not Detected (NotDetected)
[2018-08-26 15:55] VITALS: BP 128/82; PULSE 74; RESP 16
== END 2018-08-26 16:00 | disposition home or self-care (01) ==
LOC: EC 11:43
DX: R44.1 Visual hallucinations (principal); I48.91 Unspecified atrial fibrillation; E11.9 Type 2 diabetes mellitus without complications; E78.5 Hyperlipidemia, unspecified; I10 Essential (primary) hypertension; E07.9 Disorder of thyroid, unspecified; H40.9 Unspecified glaucoma; G47.33 Obstructive sleep apnea (adult) (pediatric); Z99.89 Dependence on other enabling machines and devices; Z85.3 Personal history of malignant neoplasm of breast; Z95.818 Presence of other cardiac implants and grafts; Z79.82 Long term (current) use of aspirin; Z79.01 Long term (current) use of anticoagulants; Z79.84 Long term (current) use of oral hypoglycemic drugs; Z79.890 Hormone replacement therapy; Z79.899 Other long term (current) drug therapy; Z88.5 Allergy status to narcotic agent; Z88.8 Allergy status to other drugs, medicaments and biological substances
CPT/HCPCS: 36415; 80048; 80306; 80320; 81001; 82075; 85025; 87086; 99285

== ENCOUNTER → 2021-05-21 | Outpatient (CLI) | payer MEDICARE ==
--- NOTE | 2021-05-21 16:15 | BD ---
EXAMINATION TYPE: Axial Bone Density DATE OF EXAM: 05/21/2021 COMPARISON: 01/11/2016 CLINICAL HISTORY: Postmenopausal Height: 62 IN Weight: 145 LBS FRAX RISK QUESTIONS: History of Fracture in Adulthood: MANDIBLE FX AGE 80 RISK FACTORS HISTORY OF: Active: VERY LIMITED Diet low in dairy products/other sources of calcium: YES Postmenopausal woman: TOTAL HYST AGE 51 Frequent falls: YES Poor Health: YES MEDICATIONS: Thyroid Medications: YES Which medication: Levothyroxine How Lon+ YEARS Additional Medications: CALCIUM, VIT D, VENLAFAXINE, LEVOTHYROXINE, ECOTRIN, METFORMIN, LISINOPRIL, X ARELTO, IRON, SIMVASTATIN, DONEPEZIL, LATANOPROST, TRAZODONE, PROBIOTICS Additional History: BREAST CANCER EXAM MEASUREMENTS: Bone mineral densitometry was performed using the [employer] System. Bone mineral density as measured about the Lumbar spine is: ----- L1-L4(G/cm2): 0.999 T Score Values are as follows: ----- L2: -2.0 ----- L3: -0.8 ----- L4: -1.3 ----- L1-L4: -1.5 Bone mineral density has: Decreased -7.4% since study of: 12/11/2015 Bone mineral density about the R hip (g/cm2): 0.723 Bone mineral density about the L hip (g/cm2): 0.736 T Score values are as follows: -----R Neck: -2.3 -----L Neck: -2.2 -----R Total: -1.4 -----L Total: -1.4 Bone mineral density has: Decreased -15.0% since study of: 12/11/2015 IMPRESSION: Osteopenia. NOTE: T-SCORE=SD OF THE YOUNG ADULT MEAN.
== END | disposition home or self-care (01) ==
LOC: RADBDWWP 14:11
PROVIDERS: ATTEND Family Medicine
DX: M85.89 Other specified disorders of bone density and structure, multiple sites (principal); Z78.0 Asymptomatic menopausal state
CPT/HCPCS: 77080

== ENCOUNTER → 2024-06-07 | Outpatient (CLI) | payer MEDICARE ==
--- NOTE | 2024-06-09 21:37 | BD ---
EXAMINATION TYPE: Axial Bone Density DATE OF EXAM: 06/07/2024 CLINICAL HISTORY: 84 years old Female. ICD-10 CODE: Z78.0 AYSMPTOMATIC POST MENOPAUSAL , Z78.0 Height: 61 in Weight: 150 lbs FRAX RISK QUESTIONS: History of Fracture in Adulthood: mandible fx age 81 Secondary Osteoporosis: 3. Menopause before 45: total hysterectomy age 41 MEDICATIONS: Thyroid Medications: Which medication: Synthroid How Lon+ years EXAM MEASUREMENTS: Bone mineral densitometry was performed using the [employer] System. Bone mineral density as measured about the Lumbar spine is: ----- L1-L4(G/cm2): 1.054 T Score Values are as follows: ----- L1: -2.2 ----- L2: -0.9 ----- L3: -0.3 ----- L4: -0.8 ----- L1-L4: -1.1 Z Score Values are as follows: ----- L1: -0.4 ----- L2: 0.8 ----- L3: 1.4 ----- L4: 1.0 ----- L1-L4: 0.7 Bone mineral density has: Increased 5.5% since study of: 05/21/2021 Bone mineral density about the R hip (g/cm2): 0.852 Bone mineral density about the L hip (g/cm2): 0.817 T Score values are as follows: -----R Neck: -2.1 -----L Neck: -2.4 -----R Total: -1.2 -----L Total: -1.5 Z Score values are as follows: -----R Neck: 0.2 -----L Neck: -0.1 -----R Total: 0.9 -----L Total: 0.6 Bone mineral density has: Decreased -0.1% since study of: 05/21/2021 FRAX%s: The graph provided illustrates a 25.2% chance for a major osteoporotic fx and a 8.2% chance f or the hips probability for fx in 10 years time. IMPRESSION: Osteopenia (T Score between -2.5 and -1). There is slightly increased risk of fracture and the patient may be considered for treatment. Re-Screen 2-5 years. NOTE: T-SCORE=SD OF THE YOUNG ADULT MEAN. [facility], , 06/09/2024 9:35 PM
== END | disposition home or self-care (01) ==
LOC: RADBDWWP 13:00
PROVIDERS: ATTEND Family Medicine
DX: M85.89 Other specified disorders of bone density and structure, multiple sites (principal); Z78.0 Asymptomatic menopausal state
CPT/HCPCS: 77080

== ENCOUNTER 2024-08-09 11:12 | Emergency (ER) | payer MEDICARE ==
[2024-08-09 11:22] LABS: Glucose,Whole Blood 291 mg/dL (70-110)
[2024-08-09 11:24] VITALS: TEMP 98.2
[2024-08-09 12:21] LABS: Basophils % (A) 0 %; Eosinophils # (A) 0.2 k/uL (0-0.7); Eosinophils % (A) 3 %; HCT 43.5 % (34.0-46.0); HGB 14.5 gm/dL (11.4-16.0); Lymphocytes # (A) 0.7 k/uL (1.0-4.8); Lymphocytes % (A) 10 %; MCH 32.1 pg (25.0-35.0); MCHC 33.2 g/dL (31.0-37.0); MCV 96.5 fL (80.0-100.0); Mean Platelet Volume 7.5; Monocytes # (A) 0.3 k/uL (0-1.0); Monocytes % (A) 5 %; Neutrophils # (A) 5.2 k/uL (1.3-7.7); Neutrophils % (A) 81 %; Platelet Count 213 k/uL (150-450); RBC 4.51 m/uL (3.80-5.40); RDW 13.4 % (11.5-15.5); WBC 6.4 k/uL (3.8-10.6)
[2024-08-09 12:35] LABS: ALT 19 U/L (4-34); AST 23 U/L (14-36); African American GFR (CKD) >90 (>60 ml/min/1.73 sqM); Alkaline Phosphatase 53 U/L (38-126); Anion Gap 9 mmol/L; Blood Urea Nitrogen 23 mg/dL (7-17); Carbon Dioxide 27 mmol/L (22-30); Chloride 102 mmol/L (98-107); Glucose 204 mg/dL (74-99); Magnesium 2.1 mg/dL (1.6-2.3); Non-African American GFR(CKD) 79 (>60 ml/min/1.73 sqM); Potassium 4.1 mmol/L (3.5-5.1); Sodium 138 mmol/L (137-145); Total Bilirubin 0.8 mg/dL (0.2-1.3)
[2024-08-09 12:41] LABS: Prothrombin Time 10.8 sec (10.0-12.5)
[2024-08-09 12:50] LABS: Partial Thromboplastin Time 19.6 sec (22.0-30.0)
--- NOTE | 2024-08-09 13:47 | XR ---
EXAMINATION TYPE: XR chest 2V DATE OF EXAM: 08/09/2024 1:33 PM COMPARISON: 05/29/2018 CLINICAL INDICATION: Female, 84 years old with history of Weakness, , TECHNIQUE: PA and lateral views FINDINGS: Left anterior chest wall pacemaker generator with right atrial, right ventricular, and coronary sinus leads. There appears to be a left atrial appendage occluded device. Heart upper limits of normal in size. Mild hyperinflation. Mild interstitial prominence is chronic appearance. No consolidation or pl eural effusion. Surgical clips in the upper abdomen on the lateral view. IMPRESSION: Borderline heart size and possible underlying COPD. No definite acute process. [facility], Workstation: [email or web address], 08/09/2024 1:45 PM
[2024-08-09 14:56] VITALS: PULSE 79; RESP 18
--- NOTE | 2024-08-09 15:03 | ED ---
General Adult HPI - General Chief complaint: Weakness Stated complaint: AMS Source: patient, RN notes reviewed, old records reviewed Mode of arrival: ambulatory Limitations: no limitations - History of Present Illness Initial comments: 84-year-old female with an episode of unresponsiveness. Patient was brought in by family. She had eaten breakfast this morning, appeared to have fallen asleep in the car but was difficult to arouse. Patient is awake and alert at the time my evaluation. She has no specific complaints. She is asking for discharge. She has had several episodes similar to this in the past without a specific diagnosis. She does have a pacemaker defibrillator in place. She follows with cardiology and has been worked up for this episode in the past. No headache. No focal numbness or weakness. No chest or abdominal pain. No vomiting. No fever. - Related Data Home Medications Medication Instructions Recorded Confirmed Aspirin EC [Ecotrin Low Dose] 81 mg PO DAILY 09/19/14 08/26/18 Rivaroxaban [Xarelto] 20 mg PO DAILY@1700 09/19/14 08/26/18 Simvastatin [Zocor] 80 mg PO HS 09/19/14 08/26/18 metFORMIN HCL [Glucophage] 500 mg PO BID 09/19/14 08/26/18 Latanoprost [Xalatan 0.005%] 1 drop RIGHT EYE HS 09/22/15 08/26/18 Venlafaxine HCl ER [Effexor XR] 150 mg PO DAILY 09/22/15 08/26/18 Levothyroxine Sodium [Synthroid] 112 mcg PO DAILY 05/19/18 08/26/18 Losartan [Cozaar] 25 mg PO DAILY 05/19/18 08/26/18 Calcium Carbonate [Calcium] 1,200 mg PO BID 08/26/18 08/26/18 Flecainide Acetate [Tambocor] 100 mg PO BID 08/26/18 08/26/18 Venlafaxine HCl ER [Effexor Xr] 75 mg PO DAILY 08/26/18 08/26/18 Previous Rx's Medication Instructions Recorded Metoprolol Succinate [Toprol XL] 200 mg PO DAILY #90 tab.er.24h 05/28/18 Allergies Allergy/AdvReac Type Severity Reaction Status Date / Time codeine Allergy Unknown Verified 08/09/24 11:24 Childhood NITRO PATCH AdvReac Severe Shakes/patient Uncoded 08/09/24 11:24 got very cold Review of Systems ROS Statement: Those systems with pertinent positive or pertinent negative responses have been documented in the HPI. ROS Other: All systems not noted in ROS Statement are negative. Past Medical History Past Medical History: Atrial Fibrillation, Asthma, Cancer, Diabetes Mellitus, Hyperlipidemia, Hypertension, Osteoarthritis (OA), Pneumonia, Sleep Apnea/C PAP/BIPAP, Syncope, Thyroid Disorder Additional Past Medical History / Comment(s): See Dr Allen's H&P, Other hx: AFib/RVR, bronchial asthma, pneumonia 20 yrs ago, EDGAR without device, sinus problems at times, NIDDM type II, L breast cancer with surgery, R eye glaucoma, varicose veins L leg, current rt ear infection with antibiotic tx History of Any Multi-Drug Resistant Organisms: None Reported Past Surgical History: Adenoidectomy, Breast Surgery, Cardiac Ablation, Cholecystectomy, Heart Catheterization, Hysterectomy, Tonsillectomy Additional Past Surgical History / Comment(s): 12/16/17 Cardiac ablation for Afib, Tilt table test, 2008 cardiac cath-normal, 2010 L breast mastectomy d/t cancer and then 4 months later had R mastectomy done prophylactically, bilateral cataract removals, loop placed then removed Past Anesthesia/Blood Transfusion Reactions: No Reported Reaction Past Psychological History: No Psychological Hx Reported Past Alcohol Use History: None Reported Past Drug Use History: None Reported - Past Family History Father Family Medical History: Cancer, Thyroid Disorder Additional Family Medical History / Comment(s): spleen cancer Mother Family Medical History: Cancer Additional Family Medical History / Comment(s): breast cancer twice General Exam Limitations: no limitations General appearance: alert Head exam: Present: atraumatic, normocephalic Eye exam: Present: normal appearance, PERRL ENT exam: Present: mucous membranes moist Neck exam: Present: normal inspection. Absent: tenderness, meningismus Respiratory exam: Present: normal lung sounds bilaterally. Absent: respiratory distress, wheezes Cardiovascular Exam: Present: regular rate, normal rhythm GI/Abdominal exam: Present: soft. Absent: distended, tenderness, guarding Extremities exam: Present: normal inspection, normal capillary refill. Absent: calf tenderness Neurological exam: Present: alert, oriented X3, CN II-XII intact. Absent: motor sensory deficit Psychiatric exam: Present: normal affect, normal mood Skin exam: Present: warm, dry, intact. Absent: cyanosis, diaphoretic Course Vital Signs 08/09/24 08/09/24 11:19 14:49 Temperature 98.2 F Pulse Rate 80 79 Respiratory 20 18 Rate Blood Pressure 113/67 150/91 O2 Sat by Pulse 96 96 Oximetry Medical Decision Making - Medical Decision Making Was pt. sent in by a medical professional or institution (, [facility], [facility], urgent care, hospital, or snf...) When possible be specific @ -[No] Did you speak to anyone other than the patient for history (EMS, parent, family, police, friend...)? What history was obtained from this source @History from the patient's , and the patient's son Did you review nursing and triage notes (agree or disagree)? Why? @ -[I reviewed and agree with nursing and triage notes] Were old charts reviewed (outside hosp., previous admission, EMS record, old EKG, old radiological studies, urgent care reports/EKG's, snf records)? Report findings @ -[No old charts were reviewed] Differential Syncope: Valvular disease, hypertrophic cardiomyopathy, pulmonary embolism, tamponade, tachycardia, bradycardia, DC, hypovolemia, hemorrhage, dissection, anemia, intracranial hemorrhage, seizure, hypoglycemia, carbon monoxide poisoning, this is not meant to be an all-inclusive list. EKG interpreted by me (3pts min.). @Paced rhythm rate of 79, QRS duration 185, QTc 41 X-rays interpreted by me (1pt min.). @ -Chest x-ray is negative for acute cardiopulmonary findings CT interpreted by me (1pt min.). @ -[None done] U/S interpreted by me (1pt. min.). @ -[None done] What testing was considered but not performed or refused? (CT, X-rays, U/S, labs)? Why? @ -[None] What meds were considered but not given or refused? Why? @ -[None] Did you discuss the management of the patient with other professionals (professionals i.e. [facility], [employer] [facility] [facility], lab, RT, psych nurse, psychologist social, trainmaster, teacher, medical laboratory technical officer, clinical case manager)? Give summary @ -[No] Was smoking cessation discussed for >3mins.? @ -[No] Was critical care preformed (if so, how long)? @ -[No] Were there social determinants of health that impacted care today? How? (Homelessness, low income, unemployed, alcoholism, drug addiction, transportation, low edu. Level, literacy, decrease access to med. care, halfway, rehab)? @ -[No] Was there de-escalation of care discussed even if they declined (Discuss DNR or withdrawal of care, Hospice)? DNR status @ -[No] What co-morbidities impacted this encounter? (DM, HTN, Smoking, COPD, CAD, Cancer, CVA, ARF, Chemo, Hep., AIDS, mental health diagnosis, sleep apnea, morbid obesity)? @Atrial fibrillation, sleep apnea Was patient admitted / discharged? Hospital course, mention meds given and route, prescriptions, significant lab abnormalities, going to OR and other pertinent info. @ -84-year-old female who had been seen initially as a quick note and had a prolonged stay in the waiting room. Patient had an episode of unresponsiveness, possible syncopal episode. There was no injury. Patient awoke without complaint. No chest pain. No dyspnea. She has had several episodes similar to this in the past. She does have a pacemaker defibrillator in place. Her laboratory testing is unremarkable. She has no urinary symptoms. Patient is eager for discharge at the time my evaluation. She will monitor symptoms and follow-up with the primary care provider. Undiagnosed new problem with uncertain prognosis? @ -[No] Drug Therapy requiring intensive monitoring for toxicity (Heparin, Nitro, Insulin, Cardizem)? @ -[No] Were any procedures done? @ -[No] Diagnosis/symptom? @ -[Syncope Acute, or Chronic, or Acute on Chronic? @Acute Uncomplicated (without systemic symptoms) or Complicated (systemic symptoms)? @ -[default] Side effects of treatment? @ -[No] Exacerbation, Progression, or Severe Exacerbation? @ -[No] Poses a threat to life or bodily function? How? (Chest pain, USA, DC, pneumonia, PE, COPD, DKA, ARF, appy, cholecystitis, CVA, Diverticulitis, Homicidal, Suicid al, threat to staff... and all critical care pts) @Low risk at this time - Lab Data Result diagrams: 08/09/24 12:08 08/09/24 12:08 Lab Results 08/09/24 08/09/24 08/09/24 Range/Units 11:20 12:08 12:08 WBC 6.4 (3.8-10.6) k/uL RBC 4.51 (3.80-5.40) m/uL Hgb 14.5 (11.4-16.0) gm/dL Hct 43.5 (34.0-46.0) % MCV 96.5 (80.0-100.0) fL MCH 32.1 (25.0-35.0) pg MCHC 33.2 (31.0-37.0) g/dL RDW 13.4 (11.5-15.5) % Plt Count 213 (150-450) k/uL MPV 7.5 Neutrophils % 81 % Lymphocytes % 10 % Monocytes % 5 % Eosinophils % 3 % Basophils % 0 % Neutrophils # 5.2 (1.3-7.7) k/uL Lymphocytes # 0.7 L (1.0-4.8) k/uL Monocytes # 0.3 (0-1.0) k/uL Eosinophils # 0.2 (0-0.7) k/uL Basophils # 0.0 (0-0.2) k/uL PT 10.8 (10.0-12.5) sec INR 1.0 (<1.2) APTT 19.6 L (22.0-30.0) sec Sodium (137-145) mmol/L Potassium (3.5-5.1) mmol/L Chloride (98-107) mmol/L Carbon Dioxide (22-30) mmol/L Anion Gap mmol/L BUN (7-17) mg/dL Creatinine (0.52-1.04) mg/dL Est GFR (CKD-EPI)AfAm (>60 ml/min/1.73 sqM) Est GFR (CKD-EPI)NonAf (>60 ml/min/1.73 sqM) Glucose (74-99) mg/dL POC Glucose (mg/dL) 291 H (70-110) mg/dL POC Glu Personnel Coordinator ID Trista Kirby Plasma Lactic Acid Nathan (0.7-2.0) mmol/L Calcium (8.4-10.2) mg/dL Magnesium (1.6-2.3) mg/dL Total Bilirubin (0.2-1.3) mg/dL AST (14-36) U/L ALT (4-34) U/L Alkaline Phosphatase (38-126) U/L Troponin I (0.000-0.034) ng/mL Total Protein (6.3-8.2) g/dL Albumin (3.5-5.0) g/dL Influenza Type A (PCR) (Not Detectd) Influenza Type B (PCR) (Not Detectd) RSV (PCR) (Not Detectd) SARS-CoV-2 (PCR) (Not Detectd) 08/09/24 08/09/24 08/09/24 Range/Units 12:08 12:08 12:08 WBC (3.8-10.6) k/uL RBC (3.80-5.40) m/uL Hgb (11.4-16.0) gm/dL Hct (34.0-46.0) % MCV (80.0-100.0) fL MCH (25.0-35.0) pg MCHC (31.0-37.0) g/dL RDW (11.5-15.5) % Plt Count (150-450) k/uL MPV Neutrophils % % Lymphocytes % % Monocytes % % Eosinophils % % Basophils % % Neutrophils # (1.3-7.7) k/uL Lymphocytes # (1.0-4.8) k/uL Monocytes # (0-1.0) k/uL Eosinophils # (0-0.7) k/uL Basophils # (0-0.2) k/uL PT (10.0-12.5) sec INR (<1.2) APTT (22.0-30.0) sec Sodium 138 (137-145) mmol/L Potassium 4.1 (3.5-5.1) mmol/L Chloride 102 (98-107) mmol/L Carbon Dioxide 27 (22-30) mmol/L Anion Gap 9 mmol/L BUN 23 H (7-17) mg/dL Creatinine 0.71 (0.52-1.04) mg/dL Est GFR (CKD-EPI)AfAm >90 (>60 ml/min/1.73 sqM) Est GFR (CKD-EPI)NonAf 79 (>60 ml/min/1.73 sqM) Glucose 204 H (74-99) mg/dL POC Glucose (mg/dL) (70-110) mg/dL POC Glu Personnel Coordinator ID Plasma Lactic Acid Nathan 1.7 (0.7-2.0) mmol/L Calcium 9.0 (8.4-10.2) mg/dL Magnesium 2.1 (1.6-2.3) mg/dL Total Bilirubin 0.8 (0.2-1.3) mg/dL AST 23 (14-36) U/L ALT 19 (4-34) U/L Alkaline Phosphatase 53 (38-126) U/L Troponin I <0.012 (0.000-0.034) ng/mL Total Protein 6.0 L (6.3-8.2) g/dL Albumin 4.0 (3.5-5.0) g/dL Influenza Type A (PCR) (Not Detectd) Influenza Type B (PCR) (Not Detectd) RSV (PCR) (Not Detectd) SARS-CoV-2 (PCR) (Not Detectd) 08/09/24 Range/Units 12:08 WBC (3.8-10.6) k/uL RBC (3.80-5.40) m/uL Hgb (11.4-16.0) gm/dL Hct (34.0-46.0) % MCV (80.0-100.0) fL MCH (25.0-35.0) pg MCHC (31.0-37.0) g/dL RDW (11.5-15.5) % Plt Count (150-450) k/uL MPV Neutrophils % % Lymphocytes % % Monocytes % % Eosinophils % % Basophils % % Neutrophils # (1.3-7.7) k/uL Lymphocytes # (1.0-4.8) k/uL Monocytes # (0-1.0) k/uL Eosinophils # (0-0.7) k/uL Basophils # (0-0.2) k/uL PT (10.0-12.5) sec INR (<1.2) APTT (22.0-30.0) sec Sodium (137-145) mmol/L Potassium (3.5-5.1) mmol/L Chloride (98-107) mmol/L Carbon Dioxide (22-30) mmol/L Anion Gap mmol/L BUN (7-17) mg/dL Creatinine (0.52-1.04) mg/dL Est GFR (CKD-EPI)AfAm (>60 ml/min/1.73 sqM) Est GFR (CKD-EPI)NonAf (>60 ml/min/1.73 sqM) Glucose (74-99) mg/dL POC Glucose (mg/dL) (70-110) mg/dL POC Glu Personnel Coordinator ID Plasma Lactic Acid Nathan (0.7-2.0) mmol/L Calcium (8.4-10.2) mg/dL Magnesium (1.6-2.3) mg/dL Total Bilirubin (0.2-1.3) mg/dL AST (14-36) U/L ALT (4-34) U/L Alkaline Phosphatase (38-126) U/L Troponin I (0.000-0.034) ng/mL Total Protein (6.3-8.2) g/dL Albumin (3.5-5.0) g/dL Influenza Type A (PCR) Not Detected (Not Detectd) Influenza Type B (PCR) Not Detected (Not Detectd) RSV (PCR) Not Detected (Not Detectd) SARS-CoV-2 (PCR) Not Detected (Not Detectd) Disposition Clinical Impression: Syncope Disposition: HOME SELF-CARE Condition: Fair Instructions (If sedation given, give patient instructions): Syncope (DC) Is patient prescribed a controlled substance at d/c from ED?: No Referrals: Ilda Rivera DO [Primary Care Provider] - 1-2 days Time of Disposition: 15:03
[2024-08-09 15:26] VITALS: BP 131/85
== END 2024-08-09 15:26 | disposition home or self-care (01) ==
LOC: EC 11:12
DX: R55 Syncope and collapse (principal); I11.9 Hypertensive heart disease without heart failure; I48.91 Unspecified atrial fibrillation; G47.33 Obstructive sleep apnea (adult) (pediatric); Z11.52 Encounter for screening for COVID-19; Z88.5 Allergy status to narcotic agent; Z88.9 Allergy status to unspecified drugs, medicaments and biological substances
CPT/HCPCS: 36415; 71046; 80053; 83605; 83735; 84484; 85025; 85610; 85730; 87636; 93005; 99285

== ENCOUNTER 2025-02-07 13:41 | Emergency (ER) | payer MEDICARE ==
--- NOTE | 2025-02-07 14:34 | ED ---
General Adult HPI - General Source: patient, family, RN notes reviewed Mode of arrival: ambulatory Limitations: no limitations <Billie Faulkner - Last Filed: 02/07/25 14:32> <Nika Rose - Last Filed: 02/07/25 19:07> - General Chief complaint: Weakness Stated complaint: Diarrhea,Weakness Time Seen by Provider: 02/07/25 13:55 - History of Present Illness Initial comments: Quick [id number] female presenting to the ER for complaints of diarrhea over the past 2 days. She denies abdominal pain, nausea, vomiting, urinary complaints. Previous cholecystectomy. (Billie Faulkner) 84-year-old female presents to the emergency department for evaluation of diarrhea. She notes that this started yesterday. She denies any associated symptoms. Denies chest pain, shortness of breath, nausea, vomiting, urinary complaints. (Nika Rose) - Related Data Home Medications Medication Instructions Recorded Confirmed Aspirin EC [Ecotrin Low Dose] 81 mg PO DAILY 09/19/14 02/07/25 Latanoprost [Xalatan 0.005%] 1 drop RIGHT EYE HS@199909/22/15 02/07/25 Venlafaxine HCl ER [Effexor XR] 150 mg PO DAILY 09/22/15 02/07/25 Calcium Carbonate [Calcium] 600 mg PO BID@09,199908/26/18 02/07/25 ARIPiprazole [Abilify] 5 mg PO DAILY 02/07/25 02/07/25 Blood Builder Supplement 1 tab PO DAILY 02/07/25 02/07/25 Brimonidine Tartrate [Alphagan P 1 drops RIGHT EYE BID@09,199902/07/25 02/07/25 0.2% Ophth Soln] Cyanocobalamin (Vitamin B-12) 2,500 mcg PO DAILY 02/07/25 02/07/25 [Vitamin B-12] Donepezil 23mg 23 mg PO HS@199902/07/25 02/07/25 Ergocalciferol (Vitamin D2) 1,250 mcg PO MO 02/07/25 02/07/25 [Drisdol (GEQ) 1,250 MCG (50,000 IU)] Ferrous Sulfate [Feosol] 325 mg PO DAILY@1700 02/07/25/07/25 L.acidoph,Paracasei, B.lactis 1 cap PO HS@199902/07/25 02/07/25 [Probiotic] Levothyroxine Sodium [Synthroid] 88 mcg PO DAILY 02/07/25 02/07/25 Memantine [Namenda] 5 mg PO BID@0900,199902/07/25 02/07/25 Mv-Mn/Om3/Dha/Epa/Fish/Lut/Rudolph 1 cap PO DAILY 02/07/25 02/07/25 [Ocuvite Adult 50 Plus Softgel] Pantoprazole [Protonix] 40 mg PO DAILY@169902/07/25 02/07/25 Simvastatin [Zocor] 40 mg PO HS@199902/07/25 02/07/25 diphenhydrAMINE HCL [Benadryl] 25 mg PO HS@199902/07/25 02/07/25 lisinopriL [Zestril] 2.5 mg PO DAILY 02/07/25 02/07/25 Allergies Allergy/AdvReac Type Severity Reaction Status Date / Time codeine Allergy Unknown Verified 02/07/25 17:42 Childhood NITRO PATCH AdvReac Severe Shakes/patient Uncoded 08/09/24 11:24 got very cold Review of Systems ROS Other: All systems not noted in ROS Statement are negative. <Billie Faulkner - Last Filed: 02/07/25 14:32> ROS Other: All systems not noted in ROS Statement are negative. <Nika Rose - Last Filed: 02/07/25 19:07> ROS Statement: Those systems with pertinent positive or pertinent negative responses have been documented in the HPI. Past Medical History Past Medical History: Atrial Fibrillation, Asthma, Cancer, Diabetes Mellitus, Hyperlipidemia, Hypertension, Osteoarthritis (OA), Pneumonia, Sleep Apnea/CPAP/BIPAP, Syncope, Thyroid Disorder Additional Past Medical History / Comment(s): See Dr Allen's H&P, Other hx: AFib/RVR, bronchial asthma, pneumonia 20 yrs ago, EDGAR without device, sinus problems at times, NIDDM type II, L breast cancer with surgery, R eye glaucoma, varicose veins L leg, current rt ear infection with antibiotic tx History of Any Multi-Drug Resistant Organisms: None Reported Past Surgical History: Adenoidectomy, Breast Surgery, Cardiac Ablation, Cholecystectomy, Heart Catheterization, Hysterectomy, Tonsillectomy Additional Past Surgical History / Comment(s): 12/16/17 Cardiac ablation for Afib, Tilt table test, 2008 cardiac cath-normal, 2010 L breast mastectomy d/t cancer and then 4 months later had R mastectomy done prophylactically, bilateral cataract removals, loop placed then removed Past Anesthesia/Blood Transfusion Reactions: No Reported Reaction Past Psychological History: No Psychological Hx Reported Past Alcohol Use History: None Reported Past Drug Use History: None Reported - Past Family History Father Family Medical History: Cancer, Thyroid Disorder Additional Family Medical History / Comment(s): spleen cancer Mother Family Medical History: Cancer Additional Family Medical History / Comment(s): breast cancer twice <Billie Faulkner - Last Filed: 02/07/25 14:32> General Exam Limitations: no limitations <Billie Faulkner - Last Filed: 02/07/25 14:32> Limitations: no limitations General appearance: alert, in no apparent distress Head exam: Present: atraumatic, normocephalic, normal inspection Eye exam: Present: normal appearance, PERRL, EOMI. Absent: scleral icterus, conjunctival injection, periorbital swelling ENT exam: Present: normal exam, mucous membranes moist Respiratory exam: Present: normal lung sounds bilaterally. Absent: respiratory distress, wheezes, rales, rhonchi, stridor Cardiovascular Exam: Present: regular rate, normal rhythm, normal heart sounds. Absent: systolic murmur, diastolic murmur, rubs, gallop, clicks GI/Abdominal exam: Present: soft, normal bowel sounds. Absent: distended, tenderness, guarding, rebound, rigid Extremities exam: Present: normal inspection, full ROM, normal capillary refill. Absent: tenderness, pedal edema, joint swelling, calf tenderness Back exam: Present: normal inspection Neurological exam: Present: alert, oriented X3 Psychiatric exam: Present: normal affect, normal mood Skin exam: Present: warm, dry, intact, normal color. Absent: rash <Nika Rose - Last Filed: 02/07/25 19:07> - General Exam Comments Initial Comments: Visual Physical Exam Vital signs reviewed General: Well-appearing, nontoxic, no acute distress. Head: Normocephalic, atraumatic Eyes: PERRLA, EOMI ENT: Airway patent Chest: Nonlabored breathing Skin: No visual rash, normal skin tone Neuro: Alert and oriented 3 Musculoskeletal: No gross abnormalities (Billie Faulkner) Course Vital Signs 02/07/25 02/07/25 02/07/25 13:56 16:53 18:20 Temperature 97.6 F 97.7 F 98.5 F Pulse Rate 85 80 73 Respiratory 16 19 19 Rate Blood Pressure 136/82 141/85 114/69 O2 Sat by Pulse 94 L 96 94 L Oximetry Medical Decision Making <Billie Faulkner - Last Filed: 02/07/25 14:32> - Lab Data Result diagrams: 02/07/25 14:18 02/07/25 14:18 <Nika Rose - Last Filed: 02/07/25 19:07> - Medical Decision Making I completed the quick note portion of this chart signed Billie Faulkner PA-C (Billie Faulkner) Was pt. sent in by a medical professional or institution ([facility], TECHNICAL MAINTENANCE SPECIALIST, urgent care, hospital, or long term...) When possible be specific @ -No Did you speak to anyone other than the patient for history (EMS, parent, family, police, friend...)? What history was obtained from this source @ -No Did you review nursing and triage notes (agree or disagree)? Why? @ -I reviewed and agree with nursing and triage notes Were old charts reviewed (outside hosp., previous admission, EMS record, old EKG, old radiological studies, urgent care reports/EKG's, long term records)? Report findings @ -No old charts were reviewed Differential Diagnosis (chest pain, altered mental status, abdominal pain women, abdominal pain men, vaginal bleeding, weakness, fever, dyspnea, syncope, headache, dizziness, GI bleed, back pain, seizure, CVA, palpatations, mental health, musculoskeletal)? @ -Differential Weakness: Hypoglycemia, shock, sepsis, hyponatremia, anemia, infection, NC, ETOH, adverse medicine reaction, overdose, stroke, this is not meant to be an all-inclusive list. EKG interpreted by me (3pts min.). @ -EKG@1405 ventricular paced rhythm with a rate of 83, TX 136, QRS 172, QTQTc 434/474 X-rays interpreted by me (1pt min.). @ -Chest x-ray reveals no acute process KUB reveals gaseous distention without evidence for acute process CT interpreted by me (1pt min.). @ -None done U/S interpreted by me (1pt. min.). @ -None done What testing was considered but not performed or refused? (CT, X-rays, U/S, labs)? Why? @ -None What meds were considered but not given or refused? Why? @ -None Did you discuss the management of the patient with other professionals (professionals i.e. , PA, TECHNICAL MAINTENANCE SPECIALIST, lab, RT, psych nurse, drug abuse social worker, front maker lockstitch, teacher, chief media officer, correctional case records supervisor)? Give summary @ -No Was smoking cessation discussed for >3mins.? @ -No Was critical care preformed (if so, how long)? @ -No Were there social determinants of health that impacted care today? How? (Homelessness, low income, unemployed, alcoholism, drug addiction, transportation, low edu. Level, literacy, decrease access to med. care, senior living, rehab)? @ -No Was there de-escalation of care discussed even if they declined (Discuss DNR or withdrawal of care, Hospice)? DNR status @ -No What co-morbidities impacted this encounter? (DM, HTN, Smoking, COPD, CAD, Can cer, CVA, ARF, Chemo, Hep., AIDS, mental health diagnosis, sleep apnea, morbid obesity)? @ -None Was patient admitted / discharged? Hospital course, mention meds given and route, prescriptions, significant lab abnormalities, going to OR and other pertinent info. @ -Discharge. Patient presented emergency department for evaluation of diarrhea. Laboratory studies obtained revealingNo significant leukocytosis, hemoglobin 15.7; CMP is nonactionable, negative troponin. Chest x-ray reveals no acute process, KUB reveals gaseous distention without evidence for acute process. Patient will be discharged home. Patient understanding agreeable plan. Patient stable at time of discharge. Case discussed with Dr. Muñoz Undiagnosed new problem with uncertain prognosis? @ -No Drug Therapy requiring intensive monitoring for toxicity (Heparin, Nitro, Insulin, Cardizem)? @ -No Were any procedures done? @ -No Diagnosis/symptom? @ -Diarrhea Acute, or Chronic, or Acute on Chronic? @ -Acute Uncomplicated (without systemic symptoms) or Complicated (systemic symptoms)? @ -Uncomplicated Side effects of treatment? @ -No Exacerbation, Progression, or Severe Exacerbation? @ -No Poses a threat to life or bodily function? How? (Chest pain, USA, NC, pneumonia, PE, COPD, DKA, ARF, appy, cholecystitis, CVA, Diverticulitis, Homicidal, Suicidal, threat to staff... and all critical care pts) @ -No (Nika Rose) - Lab Data Lab Results 02/07/25 02/07/25 02/07/25 Range/Units 14:18 14:18 14:18 WBC 9.83 (4.50-10.00) 10*3/uL RBC 4.97 (4.10-5.20) 10*6/uL Hgb 15.7 H (12.0-15.0) g/dL Hct 48.1 H (37.2-46.3) % MCV 96.8 (80.0-97.0) fL MCH 31.6 (27.0-32.0) pg MCHC 32.6 (32.0-37.0) g/dL Plt Count 199 (140-440) 10*3/uL MPV 9.6 (9.5-12.2) fL Immature Gran % (Auto) 0.2 % Neutrophils % 87.1 % Lymphocytes % 5.8 % Monocytes % 5.4 % Eosinophils % 1.3 % Basophils % 0.2 % Immature Gran # 0.02 (0.00-0.04) 10*3/uL Neutrophils # 8.56 H (1.80-7.70) 10*3/uL Lymphocytes # 0.57 L (0.90-5.00) 10*3/uL Monocytes # 0.53 (0.20-1.00) 10*3/uL Eosinophils # 0.13 (0.04-0.35) 10*3/uL Basophils # 0.02 (0.00-0.10) 10*3/uL Sodium 144 (137-145) mmol/L Potassium 4.2 (3.5-5.1) mmol/L Chloride 110 H (98-107) mmol/L Carbon Dioxide 24 (22-30) mmol/L Anion Gap 10 mmol/L BUN 22 H (7-17) mg/dL Creatinine 0.68 (0.52-1.04) mg/dL Est GFR (CKD-EPI)AfAm >90 (>60 ml/min/1.73 sqM) Est GFR (CKD-EPI)NonAf 81 (>60 ml/min/1.73 sqM) Glucose 146 H (74-99) mg/dL Plasma Lactic Acid Nathan 1.8 (0.7-2.0) mmol/L Calcium 9.1 (8.4-10.2) mg/dL Total Bilirubin 0.7 (0.2-1.3) mg/dL AST 26 (14-36) U/L ALT 26 (4-34) U/L Alkaline Phosphatase 88 (38-126) U/L Troponin I (0.000-0.034) ng/mL Total Protein 6.3 (6.3-8.2) g/dL Albumin 4.2 (3.5-5.0) g/dL 02/07/25 Range/Units 14:18 WBC (4.50-10.00) 10*3/uL RBC (4.10-5.20) 10*6/uL Hgb (12.0-15.0) g/dL Hct (37.2-46.3) % MCV (80.0-97.0) fL MCH (27.0-32.0) pg MCHC (32.0-37.0) g/dL Plt Count (140-440) 10*3/uL MPV (9.5-12.2) fL Immature Gran % (Auto) % Neutrophils % % Lymphocytes % % Monocytes % % Eosinophils % % Basophils % % Immature Gran # (0.00-0.04) 10*3/uL Neutrophils # (1.80-7.70) 10*3/uL Lymphocytes # (0.90-5.00) 10*3/uL Monocytes # (0.20-1.00) 10*3/uL Eosinophils # (0.04-0.35) 10*3/uL Basophils # (0.00-0.10) 10*3/uL Sodium (137-145) mmol/L Potassium (3.5-5.1) mmol/L Chloride (98-107) mmol/L Carbon Dioxide (22-30) mmol/L Anion Gap mmol/L BUN (7-17) mg/dL Creatinine (0.52-1.04) mg/dL Est GFR (CKD-EPI)AfAm (>60 ml/min/1.73 sqM) Est GFR (CKD-EPI)NonAf (>60 ml/min/1.73 sqM) Glucose (74-99) mg/dL Plasma Lactic Acid Nathan (0.7-2.0) mmol/L Calcium (8.4-10.2) mg/dL Total Bilirubin (0.2-1.3) mg/dL AST (14-36) U/L ALT (4-34) U/L Alkaline Phosphatase (38-126) U/L Troponin I 0.012 (0.000-0.034) ng/mL Total Protein (6.3-8.2) g/dL Albumin (3.5-5.0) g/dL Disposition <Billei Faulkner - Last Filed: 02/07/25 14:32> Is patient prescribed a controlled substance at d/c from ED?: No <Nika Rose - Last Filed: 02/07/25 19:07> Clinical Impression: Diarrhea Disposition: HOME SELF-CARE Condition: Stable Additional Instructions: Please follow with your doctor. Return to the emergency department for new or worsening symptoms. Referrals: Ilda Rivera DO [Primary Care Provider] - 1-2 days
[2025-02-07 14:37] LABS: Basophils # (A) 0.02 10*3/uL (0.00-0.10); Basophils % (A) 0.2 %; Eosinophils # (A) 0.13 10*3/uL (0.04-0.35); Eosinophils % (A) 1.3 %; HCT 48.1 % (37.2-46.3); HGB 15.7 g/dL (12.0-15.0); Lymphocytes # (A) 0.57 10*3/uL (0.90-5.00); Lymphocytes % (A) 5.8 %; MCH 31.6 pg (27.0-32.0); MCHC 32.6 g/dL (32.0-37.0); MCV 96.8 fL (80.0-97.0); Monocytes # (A) 0.53 10*3/uL (0.20-1.00); Monocytes % (A) 5.4 %; Neutrophils # (A) 8.56 10*3/uL (1.80-7.70); Neutrophils % (A) 87.1 %; Platelet Count 199 10*3/uL (140-440); RBC 4.97 10*6/uL (4.10-5.20); RDW 13.2 % (11.5-14.5); WBC 9.83 10*3/uL (4.50-10.00)
[2025-02-07 14:59] LABS: ALT 26 U/L (4-34); AST 26 U/L (14-36); African American GFR (CKD) >90 (>60 ml/min/1.73 sqM); Albumin 4.2 g/dL (3.5-5.0); Alkaline Phosphatase 88 U/L (38-126); Anion Gap 10 mmol/L; Blood Urea Nitrogen 22 mg/dL (7-17); Calcium 9.1 mg/dL (8.4-10.2); Carbon Dioxide 24 mmol/L (22-30); Chloride 110 mmol/L (98-107); Glucose 146 mg/dL (74-99); Non-African American GFR(CKD) 81 (>60 ml/min/1.73 sqM); Potassium 4.2 mmol/L (3.5-5.1); Sodium 144 mmol/L (137-145); Total Protein 6.3 g/dL (6.3-8.2)
--- NOTE | 2025-02-07 15:20 | XR ---
EXAMINATION TYPE: XR chest 2V DATE OF EXAM: 02/07/2025 3:16 PM COMPARISON: Chest radiographs from 08/09/2024 TECHNIQUE: XR chest 2V Frontal and lateral views of the chest. CLINICAL INDICATION:Female, 84 years old with history of Weakness; FINDINGS: Lungs/Pleura: There is no evidence of pleural effusion, focal consolidation, or pneumothorax. Pulmonary vascularity: Unremarkable. Heart/mediastinum: Cardiomediastinal silhouette is prominent in size. Three lead cardiac conduction d evice overlying the left hemithorax with lead tips projecting over the right ventricle, right atrium and coronary sinus. Musculoskeletal: No acute osseous pathology. IMPRESSION: No acute cardiopulmonary disease/process. [facility], , 02/07/2025 3:18 PM
[2025-02-07 16:58] VITALS: RESP 19
--- NOTE | 2025-02-07 16:59 | XR ---
EXAMINATION TYPE: XR KUB DATE OF EXAM: 02/07/2025 4:48 PM COMPARISON: 12/03/2015. CLINICAL INDICATION: Female, 84 years old with history of abd pain; TECHNIQUE: One radiographic view of the abdomen was obtained. FINDINGS: Gaseous distention of bowel throughout the abdomen. Cholecystomy clips are present. The bow el gas pattern is nonspecific without dilated loops of small or large bowel. . Fecal material and gas are demonstrated throughout the colon and rectum. There is no evidence for organomegaly or pneumoper itoneum. No acute osseous process. No abnormal calcifications are present. IMPRESSION: Gaseous distention with Nonspecific bowel gas pattern without radiographic evidence for acute process . [facility], , 02/07/2025 4:57 PM
[2025-02-07 18:26] VITALS: BP 114/69; PULSE 73; TEMP 98.5
== END 2025-02-07 18:38 | disposition home or self-care (01) ==
LOC: EC 13:41
DX: R19.7 Diarrhea, unspecified (principal); Z88.5 Allergy status to narcotic agent; Z88.8 Allergy status to other drugs, medicaments and biological substances
CPT/HCPCS: 36415; 71046; 74018; 80053; 83605; 84484; 85025; 93005; 96365; 99285